=== PATIENT | male | born 1955 | race Caucasian/White ===

== ENCOUNTER 2023-03-14 09:03 | Outpatient (CLI) | payer OTHER, SELFPAY ==
--- NOTE | 2023-03-14 09:14 | USCV_ITS ---
Miguel Maguire Age: 67 Gender: M : 1955 Exam Date: 03/14/2023 09:26 Ordering Phys: Pietro Fletcher DO Technologist: LINDA ANDREW [place] [facility] [place]: screening HISTORY: Diameter (cm) AP x Transverse x Length Velocity (cm/s) Waveform Prox Aorta: 1.78 x 2.04 x 77.70 Mid Aorta: 1.86 x 1.65 x 90.90 Distal Aorta: 2.10 x 2.19 x 116.50 Right Iliac Prox: 0.91 x 0.87 x 158.00 Left Iliac Prox: 0.74 x 1.03 x 129.30 Stent Prox Landing x x Aneurysmal Sac Max x x Lt Lat Sac Dim Rt Lat Sac Dim Stent Dist Landing x x Right Iliac Stent x x Left Iliac Stent x x Right Renal Art Left Renal Art FINDINGS: Comparison: none available. Ectatic abdominal aorta with evidence of atherosclerotic plaque noted. Significant plaque with narrowing to the lumen. There is evidence of atherosclerotic plaque no significan stenosis in the right common iliac artery. There is no evidence of a right common iliac artery aneurysm. There is evidence of atherosclerotic plaque no significan stenosis in the left common iliac artery. There is no evidence of a left common iliac artery aneurysm. CONCLUSIONS No evidence of abdominal aortic or bilateral iliac aneurysm. Moderate atherosclerotic plaque. Dr. Kay Wynne DO (Electronically Signed) Final Date: 14 March 2023 10:27 S
== END 2023-03-14 09:04 | disposition home or self-care (01) ==
PROVIDERS: PCP Emergency Medicine Emergency Medical Services; Visit Provider Emergency Medicine Emergency Medical Services
DX: Z13.6 Encounter for screening for cardiovascular disorders (principal); I70.0 Atherosclerosis of aorta
CPT/HCPCS: 76706

== ENCOUNTER 2023-08-12 09:29 | Outpatient (CLI) | payer OTHER, SELFPAY ==
--- NOTE | 2023-08-12 09:54 | MR_ITS ---
WS: [id number] MRI LUMBAR SPINE NONCONTRAST HISTORY: LOW BACK PAIN COMPARISON: 01/08/2017 TECHNIQUE: Sagittal and axial multisequence imaging is submitted. Anterior partial osseous fusion at C3-4. Multilevel areas of disc bulging and disc space narrowing in the cervical and thoracic spines. Mild progression since 2017. Retrolisthesis L2 and L3 by 3 mm. Disc spaces are all narrowed and desiccated throughout the lumbar s pine. Mild progression since 2017. Conus terminates normally at L1-2 disc level. L1-L2: Mild disc bulging with moderate bilateral facet arthritis. Moderate bilateral foraminal stenos is, RIGHT greater than LEFT. L2-L3: Diffuse annular disc bulging asymmetric to the RIGHT. Additional central disc protrusion has i ncreased in size deforming the ventral thecal sac extending into the subarticular recesses. There is disc encroachment upon the thecal sac. Contact on the nerve roots. Moderate central with bilateral pelletier barticular recess and foraminal stenosis. L3-L4: Diffuse annular disc bulging with moderate osteophytic ridging, ligamentum flavum and facet ar thritis. Moderate central, bilateral subarticular recess and moderate to severe foraminal stenosis. M ost significant stenosis on the LEFT. L4-L5: Diffuse annular disc bulging and osteophytic ridging with facet and ligamentum flavum hypertro phy. Moderate central, bilateral subarticular recess and moderate to severe foraminal stenosis. L5-S1: Diffuse annular disc bulging, osteophytic ridging. Disc asymmetrically extends to the level RI GHT. Moderate to severe central, bilateral subarticular recess and foraminal stenosis. Moderate atherosclerosis aorta. No aneurysm. IMPRESSION: 1. Mild progression of stenoses and degenerative changes throughout the lumbar spine since 01/08/2017. 2. Moderate central with moderate to severe bilateral foraminal stenosis from L2-3 through L5-S1. The re is significant encroachment upon the traversing and exiting nerve roots at each level. 3. Increasing central disc protrusion at the L2-3 level since the prior study. 4. L2 and L3 retrolisthesis by 3 mm.
== END 2023-08-12 09:30 | disposition home or self-care (01) ==
LOC: RAD 09:30
PROVIDERS: PCP Emergency Medicine Emergency Medical Services; Visit Provider Emergency Medicine Emergency Medical Services
DX: M48.061 Spinal stenosis, lumbar region without neurogenic claudication (principal); M51.26 Other intervertebral disc displacement, lumbar region
CPT/HCPCS: 72148

== ENCOUNTER 2025-03-04 10:30 | Inpatient (IN) | payer OTHER, MEDICARE, SELFPAY ==
--- OUTSIDE RECORDS SUMMARY | 2023-11-25 05:30 | XMS_ITS ---
Author Organization [facility] Address [address] [place] [address] Care Team Providers Care Automatic Mounter Name Role Phone [facility] Pietro WILSON Primary Care Provider Un available Andrea Alcala Unavailable [phone] REASON FOR VISIT 3 month f/u LBP Encounters Encounter Location Date Provider Diagnosis [facility] [address] [address] 11/25/2023 Andrea Alcala Plan Of Treatment No Information Progress Notes * Miguel JORDANDOB:1955 ( 69 yo M)Acc No.[id number]:11/25/2023 Progress Notes Patient: Miguel CINTRON Provider: Natalio Alcala MD :1955 A ge:68 Y S ex:Male Date:11/25/2023 Address[id number] Pcp:Pietro Thompson DO Subjective: * Chief Complaints: * 1 . 3 month f/u LBP. * Medical History: Objective: * Vitals: Assessment: Plan: * Treatment: Forms: * Billing Information: * Visit Code: * Procedure Codes: Care Plan Details* * Electronic signature of Stanley Alcala MD on 03/04/2025 at 11:01 AM CDT Sign off status: Pending * Provider: Natalio Alcala MD Date: 11/25/2023 Generated for Davidi ng/Faleroyg/eTransmitting on: 03/04/2025 11:01 AM CDT
--- OUTSIDE RECORDS SUMMARY | 2024-03-05 04:37 | XMS_ITS ---
Author Name [facility] [place] [facility] [place] [facility] [facility] [place] Address [address] [place] [address] Care Team Providers Care Gate Operator Name Role Phone NEELIMA TORRESSybil Primary Care Provider Unavailabl e Insurance Providers: All historical and current Section Date Range: From patient's date of to the date document was created. This section includes the names of all active insurance providers for the patient. Insurance Provider Type of Coverage Plan Name Start of Policy Coverage End of Policy Coverage Group Number Member ID Insurance Provider's Telephone Number Policy Dailey's Name Patient's Relationship to Policy Dailey MEDICARE (WNR) MEDICARE (M) PART A Nov 23, 2016 PART A [id number] [phone] KAYLAN JORDAN PATIENT MEDICARE (WNR) MEDICARE (M) PART A Nov 23, 2016 PART A [id number] [phone] KAYLAN JORDAN PATIENT Selected Encounter This section includes the information on record at [place] for the Encounter. Date/Time Encounter Type Encounter Description Reason Pro vider Source Mar 05, 2024 09:37 AM Outpatient Encounter ADMIN PAT ACTIVTIES (MASNONCT) IHE Encounter Template Text not used by [place] Plan of Treatment: Future Appointments (+ 6 months) and Future Tests (+/- 45 days) The Plan of Treatment section includes future care activities for the patient from all [facility] treatment[facility]ilities. This section includes future appointments and future orders which are active, pending or scheduled. Future Appointments This section includes appointments that were scheduled to occur 6 months from the date of the Encounter, up to a maximum of 20 appointments. The data comes from all [facility]. Appointment Date/Time Appointment Type Appointme nt Facility Name Jun 08, 2024 09:30 AM [facility] [place] [facility] Jun 21, 2024 10:30 AM [facility] [place] [facility] Active, Pending, and Scheduled Orders This section includes a listing of several types of active, pending, and scheduled orders, including clinic medications orders, diagnostic test orders, procedure orders and consult orders; where the start date of the order is 45 days before the date of the Encounter or 45 days after the date of theEncounter. The data comes from all [facility]. Test Date/Time Test Type Test Details Facility Name Feb 23, 2024 12:00 AM Laboratory - Chemi stry Order CYSTATIN C EGFR PANELS (STL-PB-MA) GREEN LI/HEP BLD/PLAS PLASMA [facility] Mar 08, 2024 12:00 AM Laboratory - Chemi stry Order PROST. SPECIFIC AG.(PB-STL) GOLD/RED SST SERUM [facility] Lab Results: +/- 30 days of the encounter This section includes the Chemistry and Hematology Lab Results on record with [place] for the patient. Radiology Reports and Pathology Reports are provided separately, in subsequent sections. Lab Results This section contains the Chemistry/Hematology Results that were resulted 30 days before or 30 daysafter the date of the Encounter. Date/Time Source Result Type Result - Unit Interpretation Reference Range Specimen Type Comment Feb 18, 2024 11:11 AM [facility] HGA1C BLOOD Specimen Type: BLOOD No comment entered. Ordering Provider: FREDI CAVAZOS Report Released Date/Time: Feb 17, 2024 04:02 PM Reporting Lab: [place] [facility] [address] [place] [address] Performing Lab: [place] [facility] [address] [place] [address] HGA1C 5.8 4.0-6.0 Feb 18, 2024 11:11 AM [facility] CHOLESTEROL PANEL (PB) PLASMA Specimen Type: P LASMA No comment entered. Ordering Provider: FREDI CAVAZOS Report Released Date/Time: Feb 17, 2024 04:02 PM Reporting Lab: [place] [facility] [address] [place] [facility] Performing Lab: [place] [facility] [address] [place] [address] CHOLESTEROL 208 mg/dL H 0-200 TRIGLYCERIDE 102 mg/dL 0-150 CALCULATED LDL 157.7 mg/dL HDL(New) 29.9 mg/dL L >40 HDL % OF TOTAL CHOLESTEROL (PB) 14.4 >25 Feb 18, 2024 11:11 AM [facility] VITAMIN D, 25-HYDROXY SERUM Specimen Type: SE RUM No comment entered. Ordering Provider: FREDI CAVAZOS Report Released Date/Time: Feb 17, 2024 04:02 PM Reporting Lab: [place] [facility] [address] [place] [address] Performing Lab: [place] [facility] [address] [place] [address] VITAMIN D, 25-HYDROXY 49.6 ng/mL 30-96 Feb 18, 2024 11:11 AM [facility] URINALYSIS (STL-PB) URINE Specimen Type: URIN E No comment entered. Ordering Provider: FREDI CAVAZOS Report Released Date/Time: Feb 17, 2024 04:02 PM Reporting Lab: [place] [facility] [address] [place] [address] Performing Lab: [place] [facility] [address] [place] [address] URINE COLOR Yellow Yellow U.BILIRUBIN NEGATIVE mg/dL Negative U.PH 6.0 5.0-8.0 APPEARANCE CLEAR Clear U.NITRITE NEGATIVE mg/dL Negative URN.GLUCOSE NORMAL mg/dL Negative URN.PROTEIN NEGATIVE mg/dL Negative-20 URN.UROBILINOGEN 2.0 mg/dL H Normal URN.BLOOD NEGATIVE mg/dL Negative-Trace URN.KETONES NEGATIVE mg/dL Negative-Trac e URN.LEUK.EST. NEGATIVE Negative-Trace URN.SPECIFIC GRAVITY 1.030 H 1.005-1.029 Feb 18, 2024 11:11 AM [facility] B12 SERUM Specimen Type: SERUM No comment entered. Ordering Provider: FREDI CAVAZOS Report Released Date/Time: Feb 17, 2024 04:02 PM Reporting Lab: [place] [facility] [address] [place] [address] Performing Lab: [place] [facility] [address] [place] [address] B12 543 pg/mL 213-816 Feb 18, 2024 11:11 AM [facility] COMPREHENSIVE METABOLIC PANEL PLASMA Specimen Type: PLASMA No comment entered. Ordering Provider: FREDI CAVAZOS Report Released Date/Time: Feb 17, 2024 04:02 PM Reporting Lab: [place] [facility] [address] [place] [address] Performing Lab: [place] [facility] [address] [place] [facility] CREATININE 0.86 mg/dL 0.7-1.3 UREA NITROGEN 23 mg/dL 9-25 GLUCOSE 101 mg/dL H 72-99 SODIUM 139 meq/L 136-145 POTASSIUM 4.0 meq/L 3.5-5 CHLORIDE 103 meq/L 98-107 CARBON DIOXIDE 28 meq/L 22-31 CALCIUM 9.7 mg/dL 8.4-10.4 PROTEIN 7.2 g/dL 6-8.6 ALBUMIN 4.3 g/dL 3.4-5 TOTAL BILIRUBIN 0.3 mg/dL 0.2-1.2 ALKALINE PHOSPHATASE 76 U/L 40-150 AST/SGOT 16 U/L 5-34 ALT/SGPT 13 U/L 8-40 EGFR (CKD-EPI 2020) 95 Feb 18, 2024 11:11 AM [facility] FOLATE (PB) SERUM Specimen Typ e: SERUM No comment entered. Ordering Provider: FREDI CAVAZOS Report Released Date/Time: Feb 17, 2024 04:02 PM Reporting Lab: [place] [facility] [address] [place] [address] Performing Lab: [place] [facility] [address] [place] [facility] FOLATE (PB) >20.0 ng/mL H 7-20 Feb 18, 2024 11:11 AM [facility] CBC BLOOD Specimen Type: BLOOD No comment entered. Ordering Provider: FREDI CAVAZOS Report Released Date/Time: Feb 17, 2024 04:02 PM Reporting Lab: [place] [facility] [address] [place] [facility] Performing Lab: [place] [facility] [address] [place] [address] WBC 10.6 10*3/uL 3.6-11.2 RBC 4.77 10*6/uL 4.10-5.70 HGB 15.2 g/dL 13.1-16.8 HCT 45.3 38.2-48.4 MCV 95.0 fL 80.0-100.0 MCH 31.9 pg 27.0-34.0 MCHC 33.6 g/dL 33.0-36.0 PLT 292 10*3/uL 150-400 MPV 9.6 fL 7.5-11.2 RDW 12.7 11.8-15.1 LYMPHOCYTES, AUTO % 27.6 MONOCYTES, AUTO % 10.8 NEUTROPHILS, AUTO % 56.9 EOSINOPHILS, AUTO % 3.4 BASOPHILS, AUTO % 0.9 LYMPHOCYTES, ABSOLUTE 2.92 10*3/uL 0.77- 4.50 MONOCYTES, ABSOLUTE 1.14 10*3/uL H 0.19-0. 8 NEUTROPHILS, ABSOLUTE 6.02 10*3/uL 2.10- 8.00 EOSINOPHILS, ABSOLUTE 0.36 10*3/uL 0.00- 0.60 BASOPHILS, ABSOLUTE 0.10 10*3/uL 0.00-0. 20 IMMATURE GRANS, AUTO % 0.4 IMMATURE GRANS, AUTO ABS 0.04 10*3/uL 0. 00-0.05 Feb 18, 2024 11:11 AM [facility] TSH (MA-PB) SERUM Specimen Typ e: SERUM No comment entered. Ordering Provider: FREDI CAVAZOS Report Released Date/Time: Feb 17, 2024 04:02 PM Reporting Lab: [place] [facility] [address] [place] [facility] Performing Lab: [place] [facility] [address] [place] [address] TSH 1.900 u[IU]/mL 0.47-5 Feb 18, 2024 11:11 AM [facility] PROST. SPECIFIC AG.(PB-STL) SERUM Specimen Ty pe: SERUM No comment entered. Ordering Provider: FREDI CAVAZOS Report Released Date/Time: Feb 17, 2024 04:02 PM Reporting Lab: [place] [facility] [address] [place] [address] Performing Lab: [place] [facility] [address] [place] [address] PROST. SPECIFIC AG.(PB-STL) 4.36 ng/mL H 0 -4 Radiology Reports: +/- 30 days of the encounter Radiology Reports For cases when an order for radiology services may have been completed prior to the date of the Encounter, the report list includes the Radiology Reports that were completed up to 30 days before dateof the Encounter. For cases when an order for radiology services may have been completed after the date of the Encounter, the report list also includes the Radiology Reports that were completed up to30 days after date of the Encounter. The data comes from all [place] treatment facilities. Date/Time Radiology Report Provider Source Mar 04, 2024 01:54 PM LDCT LUNG CANCER S CREENING: MARLENE JORDAN RAY [id number] -1955 M Exm Date: MAR 04, 2024@13:54 Req Phys: FREDI CAVAZOS Pat Loc: PB-TIGRE PACT BARTHOLOMEW CLUTCH SPECIALIST (Sarahyq'g Lo Img Loc: PB-CT IMAGING Service: [place] [address] (Case [id number] COMPLETE) LDCT LUNG CANCER SCREENING (CT Detailed) CPT:37030 Reason for Study: screening Clinical History: Responsible Attending: fredi cavazos Attending Contact Number: [phone] Resident Contact Number: Smokes 1 pack a day for 50years Report Status: Verified Date Reported: MAR 04, 2024 Date Verified: MAR 04, 2024 Sweet Dough Mixer E-Sig:/ES/HANNAH YOUNG Report: EXAM: LDCT LUNG CANCER SCREENING ADDITIONAL HISTORY: N/A COMPARISON: None PROTOCOL: Screening protocol, low dose, non-contrast CT chest was performed at the local [place] facility in accordance with Lung-Rads 2021. Additional coronal and sagittal reconstructions. MIP reconstructions were reviewed. Secondary computer-aided detection post-processing used. RADIATION DOSE: CTDI(vol): 2.8 mGy DLP: 106.6 mGy*cm INDEX NODULE: No suspicious pulmonary nodule. OTHER NODULES: None. LUNG/AIRWAY FINDINGS: Calcifications seen in the lungs from old granulomatous disease. Mild scarring noted. EMPHYSEMA: Mild HEART, MEDIASTINUM AND LYMPH NODES: Calcified mediastinal and hilar lymph nodes. Ascending thoracic aortic aneurysm measuring approximately 4 cm. VISUAL CORONARY ARTERY CALCIFICATIONS: Moderate to severe UPPER ABDOMEN: Calcifications in the liver and spleen from old granulomatous disease. BONES, SOFT TISSUES, AND ADDITIONAL FINDINGS: Degenerative arthritis thoracic spine. Impression: LUNG-RADS: 1: Negative. RECOMMENDATION: Follow-up low-dose CT scan in one year if patient meets criteria LUNG-RADS MODIFIER: S: Findings unrelated to lung cancer. As described above Primary Interpreting Staff: HANNAH YOUNG, RADIOLOGIST (Sweet Dough Mixer) /HANNAH Rivera [facility] Encounter Notes: All associated encounter notes This section contains the clinical notes associated to the Encounter. Date/Time Encounter Note(s) Provider Source Mar 05, 2024 09:37 AM PRIMARY CARE PANCHITO RS: LOCAL TITLE: TEST RESULT LETTER PB STANDARD TITLE: PRIMARY CARE LETTERS DATE OF NOTE: MAR 05, 2024@09:37 ENTRY DATE: MAR 05, 2024@09:37:52 AUTHOR: CECILLE KIM EXP COSIGNER: URGENCY: STATUS: COMPLETED [facility] [address] [place], [place] [address] MAR 05, 2024 MARLENE JORDAN [id number] [place], [place] [address] Dear Marlene Jordan, Thank you for completing your Lung Cancer Screening Imaging. You are very important to us. Lung cancer is treatable, and patients do better if it is found early. The national recommendation for Lung Cancer Screening is to continue through age 80 and/or until you have been cigarette free for 15 years. I would like to update you on your recent test results: RADIOLOGY(NON-INVASIVE TEST RESULTS):Low Dose CT for Lung Cancer Screening DATE of EXAM: 03/04/2024 Findings: No suspicious pulmonary nodules. Lung-RADS category 1: Negative. MANAGEMENT RECOMMENDATION: Continue annual screening with low-dose CT in 12 months. You will be due for your next Lung Cancer Screen imaging February 2025. If you have a cold or any lung congestion when you are due for your next screen, it is best to reschedule for 3-4 weeks to allow time for potential mucous to clear. Lung cancer screening can detect lung cancer, but it does not prevent it. Rarely, a CT scan can miss a small lung cancer. Contact your primary care provider if you develop new symptoms like worsening shortness of breath, change in a cough, or coughing up blood. Should you have any questions or need assistance with smoking cessation, please contact your Primary Care provider. ALLY CURRY [place] SMOKING CESSATION: [phone] (group/individual support) and clinical pharmacy for smoking cessation medication modalities. OTHER SMOKING CESSATION RESOURCES: 0-885-XYGM-VET (1:1 coaching) and veterans.smokefree.gov FUTURE APPOINTMENTS: No future appointments CECILLE KIM [facility]
--- OUTSIDE RECORDS SUMMARY | 2025-02-03 07:31 | XMS_ITS ---
Author Name [facility] [place] Address [address] [place] [address] Care Team Providers Care Putty And Caulking Supervisor Name Role Phone TJ TORRES Primary Care Provider Unavailabl e Insurance Providers: [...] PART A Nov 23, 2016 PART A [id number] [phone] KAYLAN JORDAN PATIENT MEDICARE (WNR) MEDICARE (M) PART A Nov 23, 2016 PART A [id number] KAYLAN JORDAN PATIENT Selected Encounter This section includes the information on record at [place] for the Encounter. Date/Time Encounter Type Encounter Description Reason Provider Source Feb 03, 2025 12:31 PM Outpatient Encounter ADMIN PAT ACTIVTIES (MASNONCT) CECILLE KIM Encounter Template Text not used by [facility] Radiology Reports: +/- 30 days of the [...] the Encounter. The data comes from all [place] treatment facilities. Date/Time Radiology Report Provider Source Feb 02, 2025 01:28 PM LDCT LUNG CANCER S CREENING: MARLENE JORDAN [id number] -1955 M Exm Date: FEB 02, 2025@13:28 Req Phys: JULEE VAZQUEZ Pat Loc: PB-ADMIN LUNG SCREENING (Req'g Img Loc: PB-CT IMAGING Service: Unknown [facility] [place] [place] [id number] (Case [id number] COMPLETE) LDCT LUNG CANCER SCREENING (CT Detailed) CPT:72481 Reason for Study: LCS Annual F/U Clinical History: Responsible Attending: Julee Vazquez Attending Contact Number: [phone] 03/04/2024: LRADS 1 Smoking hx: 1 ppd x 50 yrs Report Status: Verified Date Reported: FEB 03, 2025 Date Verified: FEB 03, 2025 Yarn Wrapper E-Sig: Report: EXAM: LDCT LUNG CANCER SCREENING ADDITIONAL HISTORY: Annual Screening COMPARISON: 03/04/2024 PROTOCOL: Screening protocol, low dose, non-contrast CT chest was performed at the local [place] facility in accordance with Lung-Rads 2022. Additional coronal and sagittal reconstructions. MIP reconstructions were reviewed. 2470 images were received by the [place] National Teleradiology Program (NTP) for interpretation. RADIATION DOSE: CTDI(vol): 2.8 mGy DLP: 109.8 mGy*cm INDEX NODULE: No suspicious pulmonary nodule. OTHER NODULES: A few calcified granulomas redemonstrated. No other nodule. LUNG/AIRWAY FINDINGS: Minimal subsegmental linear scarring in the right upper lobe and in the right middle lobe. No consolidation or pulmonary fibrosis. Central airways are clear. EMPHYSEMA: Mild HEART, MEDIASTINUM AND LYMPH NODES: No thoracic lymphadenopathy by size criteria. Mediastinal and hilar calcified lymph nodes consistent with healed granulomatous disease. Heart size normal. No pericardial effusion. Thoracic aorta and main pulmonary artery normal in caliber. VISUAL CORONARY ARTERY CALCIFICATIONS: Moderate UPPER ABDOMEN: Hepatic and splenic calcified granulomas as before. Visualized upper abdomen otherwise unremarkable. BONES, SOFT TISSUES, AND ADDITIONAL FINDINGS: No acute or suspicious osseous abnormality. Impression: LUNG-RADS: 1: Negative. RECOMMENDATION: [address] follow-up, if patient meets screening criteria. LUNG-RADS MODIFIER: N/A. READING PHYSICIAN: Shaheen Macedo MD -[id number] 02/03/2025 8:31 PDT [facility] National Teleradiology Program [phone] (For Medical Practitioner Use Only) Attention Patients / Veterans: If you have questions or concerns about these test results, please contact your ordering provider or primary care team. Primary Interpreting Staff: RADIOLOGY,OUTSIDE SERVICE, Staff Physician / RADIOLOGY,OUTSIDE SERVICE [facility] Encounter Notes: All associated encounter notes This section contains the clinical notes associated to the Encounter. Date/Time Encounter Note(s) Provider Source Feb 03, 2025 12:31 PM PRIMARY CARE DIAGN OSTIC STUDY NOTE: LOCAL TITLE: LDCT FOLLOW-UP NOTE PB STANDARD TITLE: PRIMARY CARE DIAGNOSTIC STUDY NOTE DATE OF NOTE: FEB 03, 2025@12:31 ENTRY DATE: FEB 03, 2025@12:31:53 AUTHOR: CECILLE KIM EXP COSIGNER: URGENCY: STATUS: COMPLETED NO LUNG NODULES or TRACKING OF NODULE NOT INDICATED per guidelines (e.g., clearly benign/some small nodules). Date of image: Date: February 02, 2025 LDCT Scan Results: Most recent LDCT Scan negative for lung nodules Lung RADS Score: 1 Incidental Findings: No incidental findings were noted. Plan: Continue routine annual lung cancer screening. Patient Notification of results: Results letter sent to patient. Smoking history: 1 ppd x 50 years, current smoker. /karina/ CHIRAG Cheng, RN LCS Program Signed: 02/03/2025 12:35 CECILLE KIM [facility]
--- OUTSIDE RECORDS SUMMARY | 2025-02-03 07:34 | XMS_ITS | Encounter Summary ---
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 Date/Time Encounter Type Encounter Description Reason Pro vider Source Feb 03, 2025 12:34 PM Outpatient Encounter ADMIN PAT ACTIVTIES (MASNONCT) IHE Encounter Template Text not used by VA [...] the Encounter. The data comes from all [place] treatment facilities. Date/Time Radiology Report Provider Source Feb 02, 2025 01:28 PM LDCT LUNG CANCER S CREENING: MARLENE JORDAN [id number] -1955 M Exm Date: FEB 02, 2025@13:28 Req Phys: JULEE VAZQUEZ Pat Loc: PB-ADMIN LUNG SCREENING (Req'g Img Loc: PB-CT IMAGING Service: Unknown MIKAYLA HAY [facility] [place] [id number] (Case [id number] COMPLETE) LDCT LUNG CANCER SCREENING (CT Detailed) CPT:98655 Reason for Study: LCS Annual F/U Clinical History: Responsible Attending: Julee Vazquez Attending Contact Number: [id number] 03/04/2024: LRADS 1 Smoking hx: 1 ppd x 50 yrs Report Status: Verified Date Reported: FEB 03, 2025 Date Verified: FEB 03, 2025 Health Plan Specialist E-Sig: Report: EXAM: LDCT LUNG CANCER SCREENING ADDITIONAL HISTORY: Annual Screening COMPARISON: 03/04/2024 PROTOCOL: Screening protocol, low dose, non-contrast CT chest was performed at the local [place] facility in accordance with Lung-Rads 2022. Additional coronal and sagittal reconstructions. MIP reconstructions were reviewed. 2470 images were received by the [place] National Teleradiology Program (NTP) for interpretation. RADIATION [...] MODIFIER: N/A. READING PHYSICIAN: Shaheen Macedo MD -[id number] 02/03/2025 8:31 PDT [facility] National Teleradiology Program [phone] (For Medical Practitioner Use Only) Attention Patients / Veterans: If you have questions or concerns about these test results, please contact your ordering provider or primary care team. Primary Interpreting Staff: RADIOLOGY,OUTSIDE SERVICE, Staff Physician / RADIOLOGY,OUTSIDE SERVICE [facility] Encounter Notes: All associated encounter notes This section contains the clinical notes associated to the Encounter. Date/Time Encounter Note(s) Provider Source Feb 03, 2025 12:34 PM PRIMARY CARE LETTE RS: LOCAL TITLE: TEST RESULT LETTER PB STANDARD TITLE: PRIMARY CARE LETTERS DATE OF NOTE: FEB 03, 2025@12:34 ENTRY DATE: FEB 03, 2025@12:34:31 AUTHOR: CECILLE KIM EXP COSIGNER: URGENCY: STATUS: COMPLETED [facility] [address], [place] [address] FEB 03, 2025 MARLENE JORDAN [address] [place], [place] [address] Dear Marlene Jordan, Thank you for completing your Lung Cancer Screening Imaging. You are very important to us. Lung cancer is treatable, and patients do better if it is found early. The national recommendation for Lung Cancer Screening is to continue through age 80 and/or until you have been cigarette free for 15 years. RADIOLOGY(NON-INVASIVE TEST RESULTS: Low Dose CT for Lung Cancer Screening DATE of EXAM: 02/02/2025 Findings: No suspicious pulmonary nodules. Lung-RADS category 1: Negative. MANAGEMENT RECOMMENDATION: Continue annual screening with low-dose CT in 12 months. You will be due for your next Lung Cancer Screen imaging January 2026. If you have a cold or any lung congestion when you are due for your next screen, it is best to reschedule for 3-4 weeks to allow time for potential mucous to clear. Lung cancer screening can detect lung cancer but it does not prevent it. Rarely, a CT scan can miss a small lung cancer. Contact your primary care provider if you develop new symptoms, such as worsening shortness of breath, change in a cough, or coughing up blood. Should you have any questions or need assistance with smoking cessation, please contact your Primary Care provider. ALLY CURRY [place] SMOKING CESSATION: [phone] (group/individual support) and clinical pharmacy for smoking cessation medication modalities. OTHER SMOKING CESSATION RESOURCES: 5-843-LXEG-VET (1:1 coaching) and veterans.smokefree.gov We understand that quitting cigarette smoking is difficult, but it is the best way to improve your health. FUTURE APPOINTMENTS: No future appointments [facility]ECILLE KIM [facility]
[2025-03-04] VITALS (22 sets, daily range): BP systolic 96–161; BP diastolic 60–77; PULSE 78–105; RESP 10–24; TEMP 36.2–37.2; O2SAT 87–99; BMI 24.9; BMI 23.8
--- OUTSIDE RECORDS SUMMARY | 2025-03-04 03:28 | XMS_ITS | Encounter Summary ---
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 Date/Time Encounter Type Encounter Description Reason Pro vider Source Mar 04, 2025 08:28 AM Outpatient Encounter TELEPHONE TRIAGE IHE Encounter Template Text not used by [...] the Encounter. The data comes from all [place] treatment facilities. Date/Time Radiology Report Provider Source Feb 02, 2025 01:28 PM LDCT LUNG CANCER S CREENING: MARLENE JORDAN [id number] -1955 M Exm Date: FEB 02, 2025@13:28 Req Phys: JULEE VAZQUEZ Pat Loc: PB-ADMIN LUNG SCREENING (Req'g Img Loc: PB-CT IMAGING Service: Unknown MIKAYLA HAY [facility] [place] [id number] (Case [id number] COMPLETE) LDCT LUNG CANCER SCREENING (CT Detailed) CPT:03909 Reason for Study: LCS Annual F/U Clinical History: Responsible Attending: Julee Vazquez Attending Contact Number: [id number] 03/04/2024: LRADS 1 Smoking hx: 1 ppd x 50 yrs Report Status: Verified Date Reported: FEB 03, 2025 Date Verified: FEB 03, 2025 Hand Screen Printer E-Sig: Report: EXAM: LDCT LUNG CANCER SCREENING ADDITIONAL HISTORY: Annual Screening COMPARISON: 03/04/2024 PROTOCOL: Screening protocol, low dose, non-contrast CT chest was performed at the local [place] facility in accordance with Lung-Rads 2021. Additional coronal and sagittal reconstructions. MIP reconstructions were reviewed. 2470 images were received by the [place] National Teleradiology Program (NTP) for interpretation. RADIATION [...] MODIFIER: N/A. READING PHYSICIAN: Shaheen Macedo MD -[id number] 02/03/2025 8:31 PDT [facility] National Teleradiology Program [phone] (For Medical Practitioner Use Only) Attention Patients / Veterans: If you have questions or concerns about these test results, please contact your ordering provider or primary care team. Primary Interpreting Staff: RADIOLOGY,OUTSIDE SERVICE, Staff Physician / RADIOLOGY,OUTSIDE SERVICE ALLY CURRY [facility] Encounter Notes: All associated encounter notes This section contains the clinical notes associated to the Encounter. Date/Time Encounter Note(s) Provider Source Mar 04, 2025 08:28 AM RN PROGRESS NOTE: LOCAL TITLE: CCC: CLINICAL TRIAGE STANDARD TITLE: RN PROGRESS NOTE DATE OF NOTE: MAR 04, 2025@08:28:18 ENTRY DATE: MAR 04, 2025@08:28:18 AUTHOR: MILA MENDIETA COSIGNER: URGENCY: STATUS: COMPLETED Caller Verification Caller/Recipient Relation to Patient: Other If Other Describe Relation to Patient: Daughter Caller Name: Alicia Emergency Contact: MALINDA JORDAN Triage Summary Conducted triage/discussed symptoms Pain Score: 5 (Moderate to Severe Pain) Utilized the Triage Tool: Yes Chief Complaint: Abdominal Pain - Male Nurse's Recommendation / WHEN: Now Nurse's Recommendation / WHERE: ED [facility] Patient Disposition Patient/Caregiver agrees to plan of care: Yes Patient WHERE: ED Other Patient WHEN: Now Nursing Plan and Disposition Referred patient to higher level of care Instructed to go to Emergency Room (ER) Advised of Financial Disclaimer: Patient advised that recommendation for care provided during the call does not constitute an approval or authorization for payment by the [place] or its staff. Patient advised to report a community ED visit to the national Office of Community Care at within 72 hours. Other course(s) of action Generated msg to PACT/Provider Nurse Summary Nurse Summary: Holcombe's daughter Alicia called reporting having RS abdominal pain since Friday she thinks its his appendix. reports moderate to severe abdominal pain to lower/middle RIGHT side and across lower abdomen, Nausea, fever, chills, abdominal swelling and black stools. Pain 5/10. Triage completed, recommends ER NOW. Financial disclaimer read. [facility] instructions and number provided. going to local ER for evaluation/treatment. Clinical Contact Center Codes Clinic/Location: V15 PB PHONE CCC RN Decision Support System Output: Triage Complete Triage Date: 03/04/2025, 08:17 AM Triage Note: Decision Support Tool Used: ClearTriage Protocol Used: Abdominal Pain - Male Protocol-Based Disposition: Go to ED Now Positive Triage Question: * [1] SEVERE pain AND [2] age > 60 years Care Advice Discussed: * Another Adult Should Drive * Nothing by Mouth * Bring Medicines IMPORTANT: This note was created by [facility] Clinical Contact Center staff. Please do not alert the staff member by adding them as a signer for future communications. Alerts are not monitored by this user. /karina/ MILA MENDIETA RN Signed: 03/04/2025 08:28 Receipt Acknowledged By: * AWAITING SIGNATURE * TJ TORRES III * AWAITING SIGNATURE * KRIS PANDA LISA A [facility] [place] [facility]
--- OUTSIDE RECORDS SUMMARY | 2025-03-04 06:00 | XMS_ITS | Continuity of Care Document ---
Author Name [facility] Organization [facility] Care Team Providers Care Advance Seal Delivery System Maintainer Name Role Phone [facility] Unavailable Unavailable Problems Combined list of problems from Department of Defense and Veterans Affairs facilities. It does not include entries that were removed or entered in error. Problem Status Onset Date Problem Type Date of Resolution Comments Source Benign prostatic hypertrophy (SNOMED CT 820079828) Active Condition [place] [facility] Chronic obstructive pulmonary disease (SNOMED CT 01352267) Active Condition [place] [facility] Closed subluxation cervical spine Active Condition [place] [facility] Elevated PSA Active Condition Feb 05, 2022 Entered By: AILEEN GARDNER Comment: 4.2 in January of 2022. 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) Active Condition [place] [facility] Neuropathy Active Condition [place] [facility] Osteoarthritis Active Condition [place] [facility] Spinal stenosis of lumbar region Active Condition [place] [facility] Thoracic aortic aneurysm without rupture Active Condition [facility] Tobacco dependence, continuous (SNOMED CT 127016145) Active Condition [place] [facility] Urinary Tract Infection Active Condition [place] [facility] Alcohol Abuse Inactive Condition 08/12/2023 [place] [facility] Noncompliance with medication regimen (SNOMED CT 318265551) Inactive Condition 08/12/2023 [place] [facility] Other Malaise and Fatigue (ICD-9-CM 780.79) Inactive Condition 08/12/2023 [place] [facility] Diagnosis: ICD-10-CM I10 Essential (primary) hypertension Active Diagnosis [facility] Medications Combined list of outpatient medications from Department of Defense and Veterans Affairs facilities.Medications provided include 1) outpatient medications from the last 15 months, and 2) patient-reported medications. Medication Details Route Status Patient Instructions Prescription Expires Prescription Number Last Dispense Date Ordering Provider Order Date Order Qty Source ALBUTEROL SO4 90MCG/ACTUA T (CFC-F) INHL,ORAL,8 .5GM INHALE 2 PUFFS ORAL INHALATI ON FOUR TIMES A DAY NEEDED FOR COPD SHAKE WELL. RINSE MOUTHPIE CE FREQUENT LY TO PREVENT CLOGGING . RESPIR ATORY (INHAL ATION) 02/18/2025 [id number] 5 JAY HILARIO ISTEL G 2023 3 [facility] CHOLECALCIF STEVEN 25MCG (1,000UNIT) TAB TAKE ONE TABLET BY MOUTH ONCE A DAY FOR VITAMIN D DEFICIEN CY. ORAL 02/18/2025 [id number] 5 JAY HILARIO ISTEL G 2023 100 [facility] FAMOTIDINE 20MG TAB TAKE ONE TABLET BY MOUTH TWICE A DAY TO LOWER STOMACH ACID ORAL ACTIVE 01/11/2026 [id number] 5 JAY HILARIO ISTEL G 2024 180 [facility] FAMOTIDINE 20MG TAB TAKE ONE TABLET BY MOUTH TWICE A DAY TO LOWER STOMACH ACID ORAL DISCONT INUED 02/18/2025 [id number] 5 JAY HILARIO ISTEL G 2023 180 [facility] FAMOTIDINE 20MG TAB TAKE ONE TABLET BY MOUTH TWICE A DAY TO LOWER STOMACH ACID ORAL DISCONT INUED 02/13/2024 [id number] 4 ANIL GARDNER 2022 60 [facility] FLUTICASONE 100MCG/SALM ETEROL 50MCG INHL,ORAL,D ISKUS,60 INHALE 1 INHALATI ON ORAL INHALATI ON TWICE A DAY FOR COPD (OPEN DISKUS; CLICK ONLY ONCE; MAY INHALE TWICE TO COMPLETE DOSE; CLOSE WHEN FINISHED ) RINSE MOUTH AND SPIT AFTER EACH USE. RESPIR ATORY (INHAL ATION) 02/18/2025 [id number] 5 JAY HILARIO ISTEL G 2023 3 [facility] FOLIC ACID 1MG TAB TAKE ONE TABLET BY MOUTH ONCE A DAY FOR FOLIC ACID SUPPLEME NTATION ORAL 02/18/2025 [id number] 5 YANELISJAY ISTEL G 2023 100 [facility] GABAPENTIN 300MG CAP TAKE ONE CAPSULE BY MOUTH THREE TIMES A DAY FOR NERVE PAIN ONE CAPSULE EVERY MORNING AND 2 AT BEDTIME ORAL ACTIVE 11/06/2025 [id number] 5 JAY HILARIO ISTEL G 2024 270 [place] [facility] HYDROCHLORO THIAZIDE 25MG TAB TAKE ONE-HALF TABLET BY MOUTH ONCE A DAY FOR HIGH BLOOD PRESSURE ORAL ACTIVE 01/11/2026 [id number] 5 JAY HILARIO ISTEL G 2024 45 [facility] HYDROCHLORO THIAZIDE 25MG TAB TAKE ONE-HALF TABLET BY MOUTH ONCE A DAY FOR HIGH BLOOD PRESSURE ORAL DISCONT INUED 02/07/2025 [id number] 5 JAY HILARIO ISTEL G 2023 45 [place] [facility] LISINOPRIL 20MG TAB TAKE ONE-HALF TABLET BY MOUTH ONCE A DAY FOR HIGH BLOOD PRESSURE ORAL ACTIVE 01/11/2026 [id number] 5 JAY HILARIO ISTEL G 2024 45 [facility] LISINOPRIL 20MG TAB TAKE ONE-HALF TABLET BY MOUTH ONCE A DAY FOR HIGH BLOOD PRESSURE ORAL DISCONT INUED 02/07/2025 [id number] 5 JAY HILARIO ISTEL G 2023 45 [place] [facility] METHOCARBAM OL 750MG TAB TAKE 1 TABLET BY MOUTH THREE TIMES A DAY NEEDED FOR MUSCLE RELAXANT ORAL ACTIVE 01/11/2026 [id number] 5 JAY HILARIO ISTEL G 2024 270 [facility] METHOCARBAM OL 750MG TAB TAKE 1 TABLET BY MOUTH THREE TIMES A DAY NEEDED FOR MUSCLE RELAXANT ORAL DISCONT INUED 02/18/2025 [id number] 5 JAY HILARIO ISTEL G 2023 270 [facility] METOPROLOL TARTRATE 100MG TAB TAKE ONE-HALF TABLET BY MOUTH TWICE A DAY FOR HEART/BL OOD PRESSURE . TAKE WITH OR IMMEDIAT YULIET FOLLOWIN G FOOD. THIS TABLET IS TO BE CUT IN HALF FOR YOUR DOSE ORAL DISCONT INUED 02/18/2025 [id number] 5 JAY HILARIO ISTEL G 2023 90 [facility] METOPROLOL TARTRATE 100MG TAB TAKE ONE-HALF TABLET BY MOUTH TWICE A DAY FOR HEART/BL OOD PRESSURE . TAKE WITH OR IMMEDIAT YULIET FOLLOWIN G FOOD. THIS TABLET IS TO BE CUT IN HALF FOR YOUR DOSE ORAL 02/18/2025 [id number] 5 JAY HILARIO ISTEL G 2024 90 [facility] NAPROXEN 375MG TAB TAKE ONE TABLET BY MOUTH TWICE A DAY FOR PAIN AND/OR INFLAMMA TION. TAKE WITH FOOD. ORAL ACTIVE 04/14/2025 [id number] 5 NITESH SILVA 2023 180 [facility] TAMSULOSIN HCL 0.4MG CAP TAKE ONE CAPSULE BY MOUTH EVERY EVENING APPROXIM ATELY 30 MINUTES AFTER THE SAME MEAL EACH DAY (FOR PROSTATE ) ORAL ACTIVE 01/11/2026 [id number] 5 HILARIO,KR ISTEL G 2024 90 [facility] TAMSULOSIN HCL 0.4MG CAP TAKE ONE CAPSULE BY MOUTH EVERY EVENING APPROXIM ATELY 30 MINUTES AFTER THE SAME MEAL EACH DAY (FOR PROSTATE ) ORAL DISCONT INUED 02/18/2025 [id number] 5 HILARIO,KR ISTEL G 2023 90 [facility] Immunizations Combined list of available immunizations from the Department of Defense and Veterans Affairs facilities. Immunization Series Date Given Administered By Site Reaction Lot Number CVX Code Drug Leach Cell Operator Status Comments Source TDAP 2007 115 complet ed [facility] Results Combined list of recent chemistry, hematology and other laboratory results from Department of Defense and Veterans Affairs, ranging from 15 months to all on record, depending upon the facility. Order Name Results Value Reference Range Date Interpretation Specimen Comments Source HGA1C HEMOGLOBIN A1C/HEMOGLO BIN.TOTAL IN BLOOD 5.8 4.0 - 6.0 02/17 Specimen Type: BLOOD No comment entered. Ordering Provider: JAY HILARIO Report Released Date/Time : Feb 17, 2024 04:02 PM Reporting Lab: [place] [facility] [address] [place] [address] Performin g Lab: [place] [facility] [address] [place] [address] 8 [facility] CHOLESTERO L PANEL (PB) CHOLESTEROL [MASS/VOLUM E] IN SERUM OR PLASMA 208 mg/dL 0 - 200 02/17 H Specimen Type: PLASMA No comment entered. Ordering Provider: JAY HILARIO Report Released Date/Time : Feb 17, 2024 04:02 PM Reporting Lab: [place] [facility] [address] [place] [address] Performin g Lab: [place] [facility] [address] [place] [address] 8 [facility] CHOLESTERO L PANEL (PB) TRIGLYCERID E [MASS/VOLUM E] IN SERUM OR PLASMA 102 mg/dL 0 - 150 02/17 Specimen Type: PLASMA No comment entered. Ordering Provider: JAY HILARIO Report Released Date/Time : Feb 17, 2024 04:02 PM Reporting Lab: [place] [facility] [address] [place] [address] Performin g Lab: [place] [facility] [address] [place] [address] 8 [facility] CHOLESTERO L PANEL (PB) CHOLESTEROL IN LDL [MASS/VOLUM E] IN SERUM OR PLASMA BY CALCULATION 157.7 mg/dL 02/17 Specimen Type: PLASMA No comment entered. Ordering Provider: JAY HILARIO Report Released Date/Time : Feb 17, 2024 04:02 PM Reporting Lab: [place] [facility] [address] [place] [address] Performin g Lab: [place] [facility] [address] [place] [address] 8 [facility] CHOLESTERO L PANEL (PB) CHOLESTEROL IN HDL [MASS/VOLUM E] IN SERUM OR PLASMA 29.9 mg/dL 40 02/17 L Specimen Type: PLASMA No comment entered. Ordering Provider: JAY HILARIO Report Released Date/Time : Feb 17, 2024 04:02 PM Reporting Lab: [place] [facility] [address] [place] [address] Performin g Lab: [place] [facility] [address] [place] [address] 8 [facility] CHOLESTERO L PANEL (PB) CHOLESTEROL IN HDL/CHOLEST STEVEN.TOTAL [MASS RATIO] IN SERUM OR PLASMA 14.4 25 02/17 Specimen Type: PLASMA No comment entered. Ordering Provider: JAY HILARIO Report Released Date/Time : Feb 17, 2024 04:02 PM Reporting Lab: [place] [facility] [address] [place] [address] Performin g Lab: [place] [facility] [address] [place] [address] 8 [facility] VITAMIN D, 25-HYDROXY 25-HYDROXYV ITAMIN D3 [MASS/VOLUM E] IN SERUM OR PLASMA 49.6 ng/mL 30 - 96 02/17 Specimen Type: SERUM No comment entered. Ordering Provider: JAY HILARIO Report Released Date/Time : Feb 17, 2024 04:02 PM Reporting Lab: [place] [facility] [address] [place] [address] Performin g Lab: [place] [facility] [address] [place] [address] 8 [facility] URINALYSIS (STL-PB) COLOR OF URINE Yellow 02/17 Specimen Type: URINE No comment entered. Ordering Provider: JAY HILARIO Report Released Date/Time : Feb 17, 2024 04:02 PM Reporting Lab: [place] [facility] [address] [place] [address] Performin g Lab: [place] [facility] [address] [place] [address] 8 [facility] URINALYSIS (STL-PB) BILIRUBIN.T OTAL [PRESENCE] IN URINE BY TEST STRIP NEGATIVEm g/dL 06/26 /2024 Specimen Type: URINE No comment entered. Ordering Provider: JAY HILARIO Report Released Date/Time : Feb 17, 2024 04:02 PM Reporting Lab: [place] [facility] [address] [place] [address] 8 Performin g Lab: [place] [facility] [address] [place] [address] 8 [facility] URINALYSIS (STL-PB) PH OF URINE BY TEST STRIP 6.0 5.0 - 8.0 02/17 Specimen Type: URINE No comment entered. Ordering Provider: JAY HILARIO Report Released Date/Time : Feb 17, 2024 04:02 PM Reporting Lab: [place] [facility] [address] [place] [address] 8 Performin g Lab: [place] [facility] [address] [place] [address] 8 [facility] URINALYSIS (STL-PB) APPEARANCE OF URINE CLEAR 02/17 Specimen Type: URINE No comment entered. Ordering Provider: JAY HILARIO Report Released Date/Time : Feb 17, 2024 04:02 PM Reporting Lab: [place] [facility] [address] [place] [address] 8 Performin g Lab: [place] [facility] [address] [place] [address] 8 [facility] URINALYSIS (STL-PB) NITRITE [PRESENCE] IN URINE BY TEST STRIP NEGATIVEm g/dL 02/17 Specimen Type: URINE No comment entered. Ordering Provider: JAY HILARIO Report Released Date/Time : Feb 17, 2024 04:02 PM Reporting Lab: [place] [facility] [address] [place] [address] 8 Performin g Lab: [place] [facility] [address] [place] [address] 8 [facility] URINALYSIS (STL-PB) GLUCOSE [MASS/VOLUM E] IN URINE BY TEST STRIP NORMALmg/ dL 02/17 Specimen Type: URINE No comment entered. Ordering Provider: JAY HILARIO Report Released Date/Time : Feb 17, 2024 04:02 PM Reporting Lab: [place] [facility] [address] [place] [address] 8 Performin g Lab: [place] [facility] [address] [place] [address] 8 [facility] URINALYSIS (STL-PB) PROTEIN [MASS/VOLUM E] IN URINE BY TEST STRIP NEGATIVEm g/dL - 20 02/17 Specimen Type: URINE No comment entered. Ordering Provider: JAY HILARIO Report Released Date/Time : Feb 17, 2024 04:02 PM Reporting Lab: [place] [facility] [address] [place] [address] 8 Performin g Lab: [place] [facility] [address] [place] [address] 8 [facility] URINALYSIS (STL-PB) URN.UROBILI NOGEN 2.0 mg/dL 02/17 H Specimen Type: URINE No comment entered. Ordering Provider: JAY HILARIO Report Released Date/Time : Feb 17, 2024 04:02 PM Reporting Lab: [place] [facility] [address] [place] [address] 8 Performin g Lab: [place] [facility] [address] [place] [address] 8 [facility] URINALYSIS (STL-PB) HEMOGLOBIN [MASS/VOLUM E] IN URINE BY TEST STRIP NEGATIVEm g/dL 02/17 Specimen Type: URINE No comment entered. Ordering Provider: JAY HLIARIO Report Released Date/Time : Feb 17, 2024 04:02 PM Reporting Lab: [place] [facility] [address] [place] [address] Performin g Lab: [place] [facility] [address] [place] [address] 8 [facility] URINALYSIS (STL-PB) KETONES [MASS/VOLUM E] IN URINE BY TEST STRIP NEGATIVEm g/dL 02/17 Specimen Type: URINE No comment entered. Ordering Provider: JAY HILARIO Report Released Date/Time : Feb 17, 2024 04:02 PM Reporting Lab: [place] [facility] [address] [place] [address] 8 Performin g Lab: [place] [facility] [address] [place] [address] 8 [facility] URINALYSIS (STL-PB) URN.LEUK.ES T. NEGATIVE 02/17 Specimen Type: URINE No comment entered. Ordering Provider: JAY HILARIO Report Released Date/Time : Feb 17, 2024 04:02 PM Reporting Lab: [place] [facility] [address] [place] [address] Performin g Lab: [place] [facility] [address] [place] [address] 8 [facility] URINALYSIS (STL-PB) SPECIFIC GRAVITY OF URINE 1.030 1.005 - 1.029 02/17 H Specimen Type: URINE No comment entered. Ordering Provider: JAY HILARIO Report Released Date/Time : Feb 17, 2024 04:02 PM Reporting Lab: [place] [facility] [address] [place] [address] Performin g Lab: [place] [facility] [address] [place] [address] 8 [facility] B12 COBALAMIN (VITAMIN B12) [MASS/VOLUM E] IN SERUM OR PLASMA 543 pg/mL 213 - 816 02/17 Specimen Type: SERUM No comment entered. Ordering Provider: JAY HILARIO Report Released Date/Time : Feb 17, 2024 04:02 PM Reporting Lab: [place] [facility] [address] [place] [address] Performin g Lab: [place] [facility] [address] [place] [address] 8 [facility] COMPREHENS GURDEEP METABOLIC PANEL CREATININE [MASS/VOLUM E] IN SERUM OR PLASMA 0.86 mg/dL 0.7 - 1.3 02/17 Specimen Type: PLASMA No comment entered. Ordering Provider: JAY HILARIO Report Released Date/Time : Feb 17, 2024 04:02 PM Reporting Lab: [place] [facility] [address] [place] [address] Performin g Lab: [place] [facility] [address] [place] [address] 8 [facility] COMPREHENS GURDEEP METABOLIC PANEL UREA NITROGEN [MASS/VOLUM E] IN SERUM OR PLASMA 23 mg/dL 9 - 25 02/17 Specimen Type: PLASMA No comment entered. Ordering Provider: JAY HILARIO Report Released Date/Time : Feb 17, 2024 04:02 PM Reporting Lab: [place] [facility] [address] [place] [address] Performin g Lab: [place] [facility] [address] [place] [address] 8 [facility] COMPREHENS GURDEEP METABOLIC PANEL GLUCOSE [MASS/VOLUM E] IN SERUM OR PLASMA 101 mg/dL 72 - 99 02/17 H Specimen Type: PLASMA No comment entered. Ordering Provider: JAY HILARIO Report Released Date/Time : Feb 17, 2024 04:02 PM Reporting Lab: [place] [facility] [address] [place] [address] Performin g Lab: [place] [facility] [address] [place] [address] 8 [facility] COMPREHENS GURDEEP METABOLIC PANEL SODIUM [MOLES/VOLU ME] IN SERUM OR PLASMA 139 meq/L 136 - 145 02/17 Specimen Type: PLASMA No comment entered. Ordering Provider: JAY HILARIO Report Released Date/Time : Feb 17, 2024 04:02 PM Reporting Lab: [place] [facility] [address] [place] [address] Performin g Lab: [place] [facility] [address] [place] [address] 8 [facility] COMPREHENS GURDEEP METABOLIC PANEL POTASSIUM [MOLES/VOLU ME] IN SERUM OR PLASMA 4.0 meq/L 3.5 - 5 02/17 Specimen Type: PLASMA No comment entered. Ordering Provider: JAY HILARIO Report Released Date/Time : Feb 17, 2024 04:02 PM Reporting Lab: [place] [facility] [address] [place] [address] Performin g Lab: [place] [facility] [address] [place] [address] 8 [facility] COMPREHENS GURDEEP METABOLIC PANEL CHLORIDE [MOLES/VOLU ME] IN SERUM OR PLASMA 103 meq/L 98 - 107 02/17 Specimen Type: PLASMA No comment entered. Ordering Provider: JAY HILARIO Report Released Date/Time : Feb 17, 2024 04:02 PM Reporting Lab: [place] [facility] [address] [place] [address] Performin g Lab: [place] [facility] [address] [place] [address] 8 [facility] COMPREHENS GURDEEP METABOLIC PANEL CARBON DIOXIDE, TOTAL [MOLES/VOLU ME] IN SERUM OR PLASMA 28 meq/L 22 - 31 02/17 Specimen Type: PLASMA No comment entered. Ordering Provider: JAY HILARIO Report Released Date/Time : Feb 17, 2024 04:02 PM Reporting Lab: [place] [facility] [address] [place] [address] Performin g Lab: [place] [facility] [address] [place] [address] 8 [facility] COMPREHENS GURDEEP METABOLIC PANEL CALCIUM [MASS/VOLUM E] IN SERUM OR PLASMA 9.7 mg/dL 8.4 - 10.4 02/17 Specimen Type: PLASMA No comment entered. Ordering Provider: JAY HILARIO Report Released Date/Time : Feb 17, 2024 04:02 PM Reporting Lab: [place] [facility] [address] [place] [address] 8 Performin g Lab: [place] [facility] [address] [place] [address] 8 [facility] COMPREHENS GURDEEP METABOLIC PANEL PROTEIN [MASS/VOLUM E] IN SERUM OR PLASMA 7.2 g/dL 6 - 8.6 02/17 Specimen Type: PLASMA No comment entered. Ordering Provider: JAY HILARIO Report Released Date/Time : Feb 17, 2024 04:02 PM Reporting Lab: [place] [facility] [address] [place] [address] Performin g Lab: [place] [facility] [address] [place] [address] 8 [facility] COMPREHENS GURDEEP METABOLIC PANEL ALBUMIN [MASS/VOLUM E] IN SERUM OR PLASMA 4.3 g/dL 3.4 - 5 02/17 Specimen Type: PLASMA No comment entered. Ordering Provider: JAY HILARIO Report Released Date/Time : Feb 17, 2024 04:02 PM Reporting Lab: [place] [facility] [address] [place] [address] Performin g Lab: [place] [facility] [address] [place] [address] 8 [facility] COMPREHENS GURDEEP METABOLIC PANEL BILIRUBIN.T OTAL [MASS/VOLUM E] IN SERUM OR PLASMA 0.3 mg/dL 0.2 - 1.2 02/17 Specimen Type: PLASMA No comment entered. Ordering Provider: JAY HILARIO Report Released Date/Time : Feb 17, 2024 04:02 PM Reporting Lab: [place] [facility] [address] [place] [address] Performin g Lab: [place] [facility] [address] [place] [address] 8 [facility] COMPREHENS GURDEEP METABOLIC PANEL ALKALINE PHOSPHATASE [ENZYMATIC ACTIVITY/VO LUME] IN SERUM OR PLASMA 76 U/L 40 - 150 02/17 Specimen Type: PLASMA No comment entered. Ordering Provider: JAY HILARIO Report Released Date/Time : Feb 17, 2024 04:02 PM Reporting Lab: [place] [facility] [address] [place] [address] Performin g Lab: [place] [facility] [address] [place] [address] 8 [facility] COMPREHENS GURDEEP METABOLIC PANEL ASPARTATE AMINOTRANSF ERASE [ENZYMATIC ACTIVITY/VO LUME] IN SERUM OR PLASMA 16 U/L 5 - 34 02/17 Specimen Type: PLASMA No comment entered. Ordering Provider: JAY HILARIO Report Released Date/Time : Feb 17, 2024 04:02 PM Reporting Lab: [place] [facility] [address] [place] [address] 8 Performin g Lab: [place] [facility] [address] [place] [address] [facility] COMPREHENS GURDEEP METABOLIC PANEL ALANINE AMINOTRANSF ERASE [ENZYMATIC ACTIVITY/VO LUME] IN SERUM OR PLASMA 13 U/L 8 - 40 02/17 Specimen Type: PLASMA No comment entered. Ordering Provider: JAY HILARIO Report Released Date/Time : Feb 17, 2024 04:02 PM Reporting Lab: [place] [facility] [address] [place] [address] Performin g Lab: [place] [facility] [address] [place] [address] [facility] COMPREHENS GURDEEP METABOLIC PANEL GLOMERULAR FILTRATION RATE/1.73 SQ M.PREDICTED [VOLUME RATE/AREA] IN SERUM, PLASMA OR BLOOD BY CREATININE- BASED FORMULA (CKD-EPI 2020) 95 02/17 Specimen Type: PLASMA No comment entered. Ordering Provider: JAY HILARIO Report Released Date/Time : Feb 17, 2024 04:02 PM Reporting Lab: [place] [facility] [address] [place] [address] Performin g Lab: [place] [facility] [address] [place] [address] [facility] FOLATE (PB) FOLATE [MASS/VOLUM E] IN SERUM OR PLASMA >20.0ng/m L 7 - 20 02/17 H Specimen Type: SERUM No comment entered. Ordering Provider: JAY HILARIO Report Released Date/Time : Feb 17, 2024 04:02 PM Reporting Lab: [place] [facility] [address] [place] [address] Performin g Lab: [place] [facility] [address] [place] [address] [facility] CBC LEUKOCYTES [#/VOLUME] IN BLOOD BY AUTOMATED COUNT 10.6 10*3/uL 3.6 - 11.2 02/17 Specimen Type: BLOOD No comment entered. Ordering Provider: JAY HILARIO Report Released Date/Time : Feb 17, 2024 04:02 PM Reporting Lab: [place] [facility] [address] [place] [address] Performin g Lab: [place] [facility] [address] [place] [address] [facility] CBC ERYTHROCYTE S [#/VOLUME] IN BLOOD BY AUTOMATED COUNT 4.77 10*6/uL 4.10 - 5.70 02/17 Specimen Type: BLOOD No comment entered. Ordering Provider: JAY HILARIO Report Released Date/Time : Feb 17, 2024 04:02 PM Reporting Lab: [place] [facility] [address] [place] [address] Performin g Lab: [place] [facility] [address] [place] [address] [facility] CBC HEMOGLOBIN [MASS/VOLUM E] IN BLOOD 15.2 g/dL 13.1 - 16.8 02/17 Specimen Type: BLOOD No comment entered. Ordering Provider: JAY HILARIO Report Released Date/Time : Feb 17, 2024 04:02 PM Reporting Lab: [place] [facility] [address] [place] [address] Performin g Lab: [place] [facility] [address] [place] [address] [facility] CBC HEMATOCRIT [VOLUME FRACTION] OF BLOOD 45.3 38.2 - 48.4 02/17 Specimen Type: BLOOD No comment entered. Ordering Provider: JAY HILARIO Report Released Date/Time : Feb 17, 2024 04:02 PM Reporting Lab: [place] [facility] [address] [place] [address] 8 Performin g Lab: [place] [facility] [address] [place] [address] [facility] CBC MCV [ENTITIC VOLUME] BY AUTOMATED COUNT 95.0 fL 80.0 - 100.0 02/17 Specimen Type: BLOOD No comment entered. Ordering Provider: JAY HILARIO Report Released Date/Time : Feb 17, 2024 04:02 PM Reporting Lab: [place] [facility] [address] [place] [address] Performin g Lab: [place] [facility] [address] [place] [address] [facility] CBC MCH [ENTITIC MASS] BY AUTOMATED COUNT 31.9 pg 27.0 - 34.0 02/17 Specimen Type: BLOOD No comment entered. Ordering Provider: JAY HILARIO Report Released Date/Time : Feb 17, 2024 04:02 PM Reporting Lab: [place] [facility] [address] [place] [address] Performin g Lab: [place] [facility] [address] [place] [address] [facility] CBC MCHC [MASS/VOLUM E] BY AUTOMATED COUNT 33.6 g/dL 33.0 - 36.0 02/17 Specimen Type: BLOOD No comment entered. Ordering Provider: JAY HILARIO Report Released Date/Time : Feb 17, 2024 04:02 PM Reporting Lab: [place] [facility] [address] [place] [address] 8 Performin g Lab: [place] [facility] [address] [place] [address] [facility] CBC PLATELETS [#/VOLUME] IN BLOOD BY AUTOMATED COUNT 292 10*3/uL 150 - 400 02/17 Specimen Type: BLOOD No comment entered. Ordering Provider: JAY HILARIO Report Released Date/Time : Feb 17, 2024 04:02 PM Reporting Lab: [place] [facility] [address] [place] [address] 8 Performin g Lab: [place] [facility] [address] [place] [address] 8 [facility] CBC PLATELET MEAN VOLUME [ENTITIC VOLUME] IN BLOOD BY AUTOMATED COUNT 9.6 fL 7.5 - 11.2 02/17 Specimen Type: BLOOD No comment entered. Ordering Provider: JAY HILARIO Report Released Date/Time : Feb 17, 2024 04:02 PM Reporting Lab: [place] [facility] [address] [place] [address] Performin g Lab: [place] [facility] [address] [place] [address] [facility] CBC ERYTHROCYTE DISTRIBUTIO N WIDTH [RATIO] BY AUTOMATED COUNT 12.7 11.8 - 15.1 02/17 Specimen Type: BLOOD No comment entered. Ordering Provider: JAY HILARIO Report Released Date/Time : Feb 17, 2024 04:02 PM Reporting Lab: [place] [facility] [address] [place] [address] 8 Performin g Lab: [place] [facility] [address] [place] [address] [facility] CBC LYMPHOCYTES /100 LEUKOCYTES IN BLOOD BY AUTOMATED COUNT 27.6 02/17 Specimen Type: BLOOD No comment entered. Ordering Provider: JAY HILARIO Report Released Date/Time : Feb 17, 2024 04:02 PM Reporting Lab: [place] [facility] [address] [place] [address] Performin g Lab: [place] [facility] [address] [place] [address] 8 [facility] CBC MONOCYTES/1 00 LEUKOCYTES IN BLOOD BY AUTOMATED COUNT 10.8 02/17 Specimen Type: BLOOD No comment entered. Ordering Provider: JAY HILARIO Report Released Date/Time : Feb 17, 2024 04:02 PM Reporting Lab: [place] [facility] [address] [place] [address] Performin g Lab: [place] [facility] [address] [place] [address] [facility] CBC NEUTROPHILS /100 LEUKOCYTES IN BLOOD BY AUTOMATED COUNT 56.9 02/17 Specimen Type: BLOOD No comment entered. Ordering Provider: JAY HILARIO Report Released Date/Time : Feb 17, 2024 04:02 PM Reporting Lab: [place] [facility] [address] [place] [address] Performin g Lab: [place] [facility] [address] [place] [address] [facility] CBC EOSINOPHILS /100 LEUKOCYTES IN BLOOD BY AUTOMATED COUNT 3.4 02/17 Specimen Type: BLOOD No comment entered. Ordering Provider: JAY HILARIO Report Released Date/Time : Feb 17, 2024 04:02 PM Reporting Lab: [place] [facility] [address] [place] [address] 8 Performin g Lab: [place] [facility] [address] [place] [address] 8 [facility] CBC BASOPHILS/1 00 LEUKOCYTES IN BLOOD BY AUTOMATED COUNT 0.9 02/17 Specimen Type: BLOOD No comment entered. Ordering Provider: JAY HILARIO Report Released Date/Time : Feb 17, 2024 04:02 PM Reporting Lab: [place] [facility] [address] [place] [address] 8 Performin g Lab: [place] [facility] [address] [place] [address] 8 [facility] CBC LYMPHOCYTES [#/VOLUME] IN BLOOD BY AUTOMATED COUNT 2.92 10*3/uL 0.77 - 4.50 02/17 Specimen Type: BLOOD No comment entered. Ordering Provider: JAY HILARIO Report Released Date/Time : Feb 17, 2024 04:02 PM Reporting Lab: [place] [facility] [address] [place] [address] Performin g Lab: [place] [facility] [address] [place] [address] [facility] CBC MONOCYTES [#/VOLUME] IN BLOOD BY AUTOMATED COUNT 1.14 10*3/uL 0.19 - 0.8 02/17 H Specimen Type: BLOOD No comment entered. Ordering Provider: JAY HILARIO Report Released Date/Time : Feb 17, 2024 04:02 PM Reporting Lab: [place] [facility] [address] [place] [address] Performin g Lab: [place] [facility] [address] [place] [address] [facility] CBC NEUTROPHILS [#/VOLUME] IN BLOOD BY AUTOMATED COUNT 6.02 10*3/uL 2.10 - 8.00 02/17 Specimen Type: BLOOD No comment entered. Ordering Provider: JAY HILARIO Report Released Date/Time : Feb 17, 2024 04:02 PM Reporting Lab: [place] [facility] [address] [place] [address] Performin g Lab: [place] [facility] [address] [place] [address] [facility] CBC EOSINOPHILS [#/VOLUME] IN BLOOD BY AUTOMATED COUNT 0.36 10*3/uL 0.00 - 0.60 02/17 Specimen Type: BLOOD No comment entered. Ordering Provider: JAY HILARIO Report Released Date/Time : Feb 17, 2024 04:02 PM Reporting Lab: [place] [facility] [address] [place] [address] Performin g Lab: [place] [facility] [address] [place] [address] 8 [facility] CBC BASOPHILS [#/VOLUME] IN BLOOD BY AUTOMATED COUNT 0.10 10*3/uL 0.00 - 0.20 02/17 Specimen Type: BLOOD No comment entered. Ordering Provider: JAY HILARIO Report Released Date/Time : Feb 17, 2024 04:02 PM Reporting Lab: [place] [facility] [address] [place] [address] Performin g Lab: [place] [facility] [address] [place] [address] [facility] CBC IMMATURE GRANULOCYTE S/100 LEUKOCYTES IN BLOOD BY AUTOMATED COUNT 0.4 02/17 Specimen Type: BLOOD No comment entered. Ordering Provider: JAY HILARIO Report Released Date/Time : Feb 17, 2024 04:02 PM Reporting Lab: [place] [facility] [address] [place] [address] 8 Performin g Lab: [place] [facility] [address] [place] [address] [facility] CBC IMMATURE GRANULOCYTE S [#/VOLUME] IN BLOOD BY AUTOMATED COUNT 0.04 10*3/uL 0.00 - 0.05 02/17 Specimen Type: BLOOD No comment entered. Ordering Provider: JAY HILARIO Report Released Date/Time : Feb 17, 2024 04:02 PM Reporting Lab: [place] [facility] [address] [place] [address] Performin g Lab: [place] [facility] [address] [place] [address] [facility] TSH (MA-PB) THYROTROPIN [UNITS/VOLU ME] IN SERUM OR PLASMA 1.900 u[IU]/mL 0.47 - 5 02/17 Specimen Type: SERUM No comment entered. Ordering Provider: JAY HILARIO Report Released Date/Time : Feb 17, 2024 04:02 PM Reporting Lab: [place] [facility] [address] [place] [address] Performin g Lab: [place] [facility] [address] [place] [address] [facility] PROST. SPECIFIC AG.(PB-STL ) PROSTATE SPECIFIC AG [MASS/VOLUM E] IN SERUM OR PLASMA 4.36 ng/mL 0 - 4 02/17 H Specimen Type: SERUM No comment entered. Ordering Provider: JAY HILARIO Report Released Date/Time : Feb 17, 2024 04:02 PM Reporting Lab: [place] [facility] [address] [place] [address] Performin g Lab: [place] [facility] [address] [place] [address] [facility] Encounters Combined list of: 1) Encounters from Department of [facility] Affairs facilities going backup to the last 18 months, not all VA inpatient encounters are included; 2) Encounters from the Department of Defense facilities going backup to 280 months. Location Location Details Encounter Type Encounter Number Reason For Visit Attending Provider ADM Date DC Date Status Disposition Source [facility] Outpatient Encounter [id number] 01/22 [facility] [place] [facility] Outpatient Encounter [id number] KAILASH ABARCA 02/05 [place] [facility] Outpatient Encounter [id number] 02/15 [facility] OFFICE O/P EST MOD 30 MIN [id number] Diagnos is: ICD-10- CM I10 Essenti al (primar y) hyperte nsion GUERITA HILARIO G 02/17 [facility] Outpatient Encounter [id number] 03/04 [facility] [place] [facility] Outpatient Encounter [id number] ELISHA KIM IA 03/05 [place] [facility] [place] [facility] Outpatient Encounter [id number] 03/05 [place] [facility] [place] [facility] Outpatient Encounter [id number] 04/09 [place] [facility] Outpatient Encounter [id number] 05/27 [facility] Outpatient Encounter [id number] 05/28 [facility] Outpatient Encounter [id number] 06/17 [facility] Outpatient Encounter [id number] 06/21 [facility] [place] [facility] Outpatient Encounter [id number] 11/05 [place] [facility] [place] [facility] Outpatient Encounter [id number] 01/07 [place] [facility] [place] [facility] Outpatient Encounter [id number] 01/21 [place] [facility] [place] [facility] Outpatient Encounter [id number] 01/21 [place] [facility] Outpatient Encounter [id number] 02/02 [facility] [place] [facility] Outpatient Encounter [id number] ELISHA KIM IA 02/03 [place] [facility] [place] [facility] Outpatient Encounter [id number] 02/03 [place] [facility] [place] [facility] Outpatient Encounter [id number] 03/04 [place] [facility] Social History Combined list of available smoking, tobacco, and other social history from Department of Defense and Veterans Affairs facilities. Social History Type Response Date Comment 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 [facility] History of tobacco use TOBACCO USER OFFERED MEDS 01/28/2018 [facility] History of tobacco use TOBACCO USER OFFERED MEDS 01/24/2017 [facility] History of tobacco use TOBACCO OFFERED [facility]MOKING [facility]IN[facility] 01/15/2016 [facility] History of tobacco use TOBACCO OFFERED PT MEDS (PROVIDER) 07/10/2015 [facility] History of tobacco use TOBACCO OFFERED PT MEDS (PROVIDER) 06/14/2015 [facility] History of tobacco use TOBACCO OFFERED STOP SMOKING CLINIC 12/20/2014 [facility] History of tobacco use TOBACCO OFFERED STOP SMOKING CLINIC 09/16/2013 [facility] History of tobacco use TOBACCO OFFERED PT MEDS (PROVIDER) 08/11/2012 [facility] History of tobacco use TOBACCO OFFERED PT MEDS (PROVIDER) 07/09/2011 [facility] History of tobacco use TOBACCO OFFERED PT MEDS (PROVIDER) 12/10/2010 [facility] History of tobacco use TOBACCO OFFERED PT MEDS (PROVIDER) 11/06/2010 [facility] History of tobacco use TOBACCO OFFERED PT MEDS (PROVIDER) 03/13/2010 [facility] History of tobacco use TOBACCO OFFERED PT MEDS (PROVIDER) 06/21/2009 [facility] not want [facility] History of tobacco use TOBACCO OFFERED STOP SMOKING CLINIC 03/29/2008 Eldon JOYCE, has written RX from [facility] History of tobacco use TOBACCO OFFERED STOP SMOKING CLINIC 08/05/2007 patient [facility] not want [facility]
--- OUTSIDE RECORDS SUMMARY | 2025-03-04 11:02 | XMS_ITS | Patient Health Record ---
Author Organization [facility] Address [address] [place] [address] Care Team Providers Care Information Tech Name Role Phone [facility] Pietro WILSON Primary Care Provider Un available Andrea Alcala Unavailable [phone] Reason For Referral No Information Medications Medication SIG (Take, Route, Frequency, Duration) Notes Start Date End Date Status Simvastatin 20 MG Take 1 tablet(s) by mouth at bedtime Oral for 30 Simvastatin 20mg Tablet Take 1 tablet(s) by mouth at bedtime QS for 90 day(s) 05/25/2007 Active Aspirin 325 MG 1 tab(s) po q pm Oral for 30 Aspirin 325mg Caplet 1 tab(s) po q pm QS for 90 day(s) 05/25/2007 Active Nitroglycerin 0.4 MG Dissolve 1 tablet(s) under the tongue may repeat every 5 minutes. Maximum of 3 doses in 15 minutes Sublingual for 30 Nitroglycerin 0.4mg Tablets, Sublingual Dissolve 1 tablet(s) under the tongue may repeat every 5 minutes. Maximum of 3 doses in 15 minutes #4 (Four) 25 tablet bottle 05/25/2007 Active Metoprolol Tartrate 25 MG 1 tab(s) po q 12 hours Oral for 30 Metoprolol 25mg Tablet 1 tab(s) po q 12 hours QS for 90 day(s) 05/25/2007 Active Problems Problem Type SNOMED Code ICD Code Onset Dates Problem Status W/U Status Risk Notes Problem Lumbar spondylosis (654679534) Lumbar spondylosis (M47.816) Active confirmed Problem Benign essential hypertension (3620186) Essential hypertension, benign (401.1) 06/03/20 07 Active confirmed [id number]- Problem COPD - Chronic obstructive pulmonary disease (66834433) COPD (496) 06/03/20 Active confirmed [id number] 11- Problem Chest pain (78900162) Chest pain (786.51) 05/25/20 07 Problem resolved confirmed [facility] [id number]- Plan Of Treatment No Information Insurance Providers Payer Name Payer Address Payer Phone Subscriber Number Group Number Insured Name Patient Relationship to Insured Coverage Start Date Coverage End Date [employer] [address] [place] [phone] [id number] Maguire, Doyal Self - patient is the insured Medical (General) History Medical History History ICD Code UNREMARKABLE Surgical History Surgery Date(Month/Year) neck surgery 2019 Hospitalization History Reason Date(Month/Year) Neck surgery 2019
--- NOTE | 2025-03-04 11:14 | W.ED.ABDPA2 ---
HPI - Abdominal Pain General: Chief Complaint: Abdominal Pain Stated Complaint: appendicitis Time Seen by Provider: 03/04/25 11:04 History of Present Illness: 69-year-old man with history of hypertension and possibly A-fib as he is on amiodarone but does not appear to have any anticoagulation who presents the emergency room with right lower quadrant abdominal pain, nausea and fevers. This been going on for about 3 to 4 days now. He says he is been having fevers at night. He had some diarrhea today. He is had no surgeries on his belly before. No chest pain. No shortness of breath. No altered mental status. Related Data Home Medications ?Medication ?Instructions ?Recorded ?Confirmed albuterol sulfate 90 mcg/actuation 2 inh inhalation BID PRN Shortness 03/04/25 03/04/25 aerosol inhaler (Ventolin HFA) Of Breath Or Wheezing cholecalciferol (vitamin D3) 25 25 mcg PO DAILY 03/04/25 03/04/25 mcg (1,000 unit) capsule (Vitamin D3) famotidine 20 mg tablet 20 mg PO BID 03/04/25 03/04/25 fluticasone 100 mcg-salmeterol 50 1 inh inhalation Q12H 03/04/25 03/04/25 mcg/dose blistr powdr for inhalation (Michael Love) folic acid 1 mg tablet 1 mg PO DAILY 03/04/25 03/04/25 gabapentin 300 mg capsule 300 mg PO TID 03/04/25 03/04/25 hydrochlorothiazide 25 mg tablet 12.5 mg PO DAILY 03/04/25 03/04/25 lisinopril 20 mg tablet 10 mg PO DAILY 03/04/25 03/04/25 methocarbamol 750 mg tablet 750 mg PO TID PRN Pain 03/04/25 03/04/25 metoprolol tartrate 100 mg tablet 100 mg PO BID 03/04/25 03/04/25 naproxen 375 mg tablet 375 mg PO BID PRN Pain 03/04/25 03/04/25 tamsulosin 0.4 mg capsule 0.4 mg PO QPM 03/04/25 03/04/25 zinc acetate 50 mg (zinc) capsule 50 mg PO DAILY 03/04/25 03/04/25 Allergies Allergy/AdvReac Type Severity Reaction Status Date / Time No Known Allergies Allergy Verified 03/04/25 10:52 Review of Systems Narrative: Constitutional symptoms: Negative except as documented in HPI. Skin symptoms: Negative except as documented in HPI. Eye symptoms: Negative except as documented in HPI. ENMT symptoms: Negative except as documented in HPI. Respiratory symptoms: Negative except as documented in HPI. Cardiovascular symptoms: Negative except as documented in HPI. Gastrointestinal symptoms: Negative except as documented in HPI. Genitourinary symptoms: Negative except as documented in HPI. Musculoskeletal symptoms: Negative except as documented in HPI. Neurologic symptoms: Negative except as documented in HPI. Psychiatric symptoms: Negative except as documented in HPI. Endocrine symptoms: Negative except as documented in HPI. Physical Exam Narrative: EXAM NARRATIVE: General: Alert, patient appears ill Skin: Warm, dry. Head: Normocephalic, atraumatic. Neck: Supple, trachea midline. Eye: Extraocular movements are intact. Ears, nose, mouth and throat: Dry oral mucosa Cardiovascular: Regular, Normal peripheral perfusion. Respiratory: Lungs are clear to auscultation, respirations are non-labored, breath sounds are equal, Symmetrical chest wall expansion. Gastrointestinal: Soft, severe right lower quadrant tenderness to palpation with moderate left lower quadrant tenderness. Some guarding, Non distended Musculoskeletal: Normal ROM, no deformity. Neurological: Alert and oriented, No focal neurological deficit observed. Psychiatric: Cooperative, appropriate mood & affect. Course Vital Signs: Vital signs: Vital Signs Temperature 97.8 F 03/04/25 10:46 Pulse Rate 95 03/04/25 16:09 Respiratory Rate 17 03/04/25 14:36 Blood Pressure 149/69 03/04/25 16:09 Pulse Oximetry 98 03/04/25 16:09 Oxygen Delivery Me thod Room Air 03/04/25 11:34 MDM - Abdominal Pain Medical Decision Making Medical decision making: Differential diagnosis for this patient with right lower quadrant abdominal pain including but not limited to and based on the above HPI, review of systems and physical exam: Ureterolithiasis. Urinary tract infection. Appendicitis. colitis. small bowel obstruction. Crohn's flare. Pancreatitis. Cholelithiasis or cholecystitis. Hepatitis. Diverticulitis. Constipation. ovarian cyst. ovarian torsion Workup: Orders were placed to evaluate differential diagnosis based on the above differential, HPI and exam: Lab Review: Laboratory results were reviewed and interpreted by myself the emergency room physician. Significant leukocytosis with a white count of 17,000. Renal failure with a BUN/creatinine of 46 and 1.5. I do not have any comparison lab work. CRP is extremely elevated at over 400. CT of the abdomen pelvis: Initially read as a small bowel obstruction with diverticulitis with a possible pericolic abscess. Surgeon was consulted and she went and reviewed this with the radiologist and they have decided now that this looks more like an acute appendicitis. This was reviewed and interpreted by myself the emergency room physician. I also reviewed the radiology report. Consultation: I spoke with Dr. Hunter who is on-call for general surgery who was taken the patient to operating room emergently. Consultation: I spoke with Dr. Lopez who is on-call for the hospitalist service who agrees to admission to the ICU. I reviewed the patient's medical record Reexamination: Patient's blood pressure has improved with fluids. His pain is improved some with morphine. He still appears somewhat ill. He is no longer tachycardic. Assessment and plan: Acute appendicitis Acute renal failure Sepsis Dehydration -2.0 liters normal saline bolus were given. This was 30 mL liters per kilogram -Broad-spectrum antibiotics were administered. Zyvox and meropenem -Sepsis quality measures. -Lactic acid with a reflex was ordered. -Blood cultures were ordered. -I discussed the patient with the hospitalist on-call who is admitting the patient. - Discussed findings and plan with patient. Answered any questions. - All laboratory values were reviewed and interpreted personally by myself, the ER physician - All imaging was reviewed and interpreted personally by myself, the ER physician. - Evaluation and treatment of this problem were appropriate in the emergency setting Critical care: -I spent a total of >35 minutes of critical care time managing the patient, independent of any other practitioner. -The time involved in the performance of separately reportable procedures was not counted towards critical care time. Lab Data 03/04/25 11:25 03/04/25 11:25 Labs/Radiology: Radiology Impressions Abdomen/Pelvis CT 03/04/25 12:19 IMPRESSION: 1. Small bowel obstruction with transition point in the RIGHT lower quadrant. 2. Advanced diverticulosis of the sigmoid colon with acute diverticulitis and 2 cm paracolic abscess. There may be fistulous communication between the abscess and the small bowel in the pelvis. Marked inflammatory changes noted in the paracolic fat. 2. Advanced atherosclerotic disease of the aorta and major arteries in the pelvis as noted above. Additional chronic findings. Laboratory Results WBC 17.62 10^3/uL (3.29-11.43) H 03/04/25 11: RBC 4.92 10^6/uL (3.85-5.65) 03/04/25 11: Hgb 15.60 g/dL (11.27-16.99) 03/04/25 11: Hct 45.5 % (37-53) 03/04/25 11: MCV 92.5 fl (82-101) 03/04/25 11: MCH 31.7 pg (27-33) 03/04/25 11: MCHC 34.3 g/dL (30-55) 03/04/25 11: RDW 12.6 % (12.1-15.1) 03/04/25: Plt Count 229 10^3/cmm (157-399) 03/04/25 11: MPV 9.3 fL (7.4-10.4) 03/04/25 11: Neut % (Auto) 86.6 % 03/04/25 11: Lymph % (Auto) 5.4 % 03/04/25 11: [place] % (Auto) 7.0 % 03/04/25 11: Eos % (Auto) 0.1 % 03/04/25 11: Baso % (Auto) 0.3 % 03/04/25: Neut # (Auto) 15.26 10^3/uL (1.8-7.7) H 03/04/25 11: Lymph # (Auto) 1.0 10^3/uL (0.8-4.8) 03/04/25 11: [place] # (Auto) 1.2 10^3/uL (0.2-0.9) H 03/04/25 11: Eos # (Auto) 0.0 10^3/uL (0.0-0.8) 03/04/25 11: Baso # (Auto) 0.1 10^3/uL (0.0-0.1) 03/04/25 11: Nucleated RBC % (auto) 0 % 03/04/25 11: Nucleated RBCs # 0.0 /100WBC 03/04/25 11:25 Sodium 132 mmol/L (136-145) L 03/04/25 11:25 Potassium 4.0 mmol/L (3.5-5.1) 03/04/25 11:25 Chloride 89 mmol/L (98-107) L 03/04/25 11:25 Carbon Dioxide 29 mmol/L (22-29) 03/04/25 11:25 Anion Gap 18.0 (5-19) 03/04/25 11:25 BUN 46 mg/dL (8-23) H 03/04/25 11:25 Creatinine 1.5 mg/dL (0.7-1.2) H 03/04/25 11:25 GFR Calculation 46.7 mL/min (90-130) L 03/04/25 11: Glucose 123 mg/dL (65-115) H 03/04/25 11:25 Calculated Osmolality 287 mOsm/kg (285-295) 03/04/25 11:25 Lactic Acid 1.8 mmol/L (0.5-2.2) 03/04/25 11:25 Calcium 9.8 mg/dL (8.5-10.5) 03/04/25 11: Total Bilirubin 0.5 mg/dL (0.15-1.2) 03/04/25 11: AST 13 U/L (0-40) 03/04/25 11: ALT 9 U/L (0-41) 03/04/25 11:25 Alkaline Phosphatase 74 U/L (40-130) 03/04/25 11:25 C-Reactive Protein 430.2 mg/L (0.0-4.9) H 03/04/25 11:25 Total Protein 7.8 g/dL (6.6-8.7) 03/04/25 11:25 Albumin 3.9 g/dL (3.5-5.2) 03/04/25 11: Globulin 3.9 g/dL (1.3-4.6) 03/04/25 11: Lipase 8 U/L (13-60) L 03/04/25 11:25 Urine Color Dark yellow (Yellow) A 03/04/25 11:20 Urine Appearance Cloudy (CLEAR) A 03/04/25 11:20 Urine pH 5.5 (5-7) 03/04/25 11:20 Ur Specific [place] 1.025 (1.005-1.030) 03/04/25 11:20 Urine Protein 1+ (Negative) A 03/04/25 11:20 Urine Glucose (UA) Negative (Normal) 03/04/25 11:20 Urine Ketones 1+ (Negative) H 03/04/25 11:20 Urine Blood Negative (Negative) 03/04/25 11:20 Urine Nitrate Negative (Negative) 03/04/25 11:20 Urine Bilirubin 1+ (Negative) H 03/04/25 11:20 Urine Urobilinogen 1.0 mg/dL (Negative) 03/04/25 11:20 Ur Leukocyte Esterase Negative (Negative) 03/04/25 11:20 Urine RBC 3-5 /hpf (0-2) 03/04/25 11:20 Urine WBC 0-5 /hpf (0-5) 03/04/25 11:20 Ur Squamous Epith Cells 11-20 /hpf (0-5) H 03/04/25 11:20 Amorphous Sediment Not Reportable 03/04/25 11:20 Urine Bacteria None seen /hpf (NONE) 03/04/25 11:20 Hyaline Casts 64.96 /lpf 03/04/25 11:20 Fine Granular Casts 0-4 /lpf H 03/04/25 11:20 All radiology interpretation(s) finalized by discharge Discharge Plan Discharge Patient Disposition: Admitted As Inpatient Clinical Impression: Acute appendicitis, Acute renal failure, Sepsis Condition: Stable Coding Level of Care Code ED Sr. [employer] for Riya Tinoco
[2025-03-04] MEDS: ondansetron 2 mg/ML SDV 2 mL 4 MG IVP (11:34)
[2025-03-04] MEDS: HYDROmorphone 0.5 MG/0.5 ML INJ IVP (11:34)
[2025-03-04 11:36] LABS: Hematocrit 45.5 % (37-53); Hemoglobin 15.60 g/dL (11.27-16.99); Mean Corpuscular HGB Conc 34.3 g/dL (30-55); Mean Corpuscular Hemoglobin 31.7 pg (27-33); Mean Corpuscular Volume 92.5 fl (82-101); Nucleated Red Blood Cells % 0 %; Platelet Count 229 10^3/cmm (157-399); Red Blood Count 4.92 10^6/uL (3.85-5.65); White Blood Count 17.62 10^3/uL (3.29-11.43)
[2025-03-04 11:46] LABS: Glucose Urine UA Negative (Normal); Nitrate Urine Negative (Negative); Specific Gravity, Urine 1.025 (1.005-1.030)
[2025-03-04 11:51] LABS: Universal Test for UA Present (0)
[2025-03-04 11:51] LABS: Lactic Sepsis W/Reflex 1.8 mmol/L (0.5-2.2)
[2025-03-04 11:52] LABS: Alanine Aminotransferase 9 U/L (0-41); Albumin Level 3.9 g/dL (3.5-5.2); Alkaline Phosphatase 74 U/L (40-130); Anion Gap 18.0 (5-19); Aspartate Amino Transferase 13 U/L (0-40); Blood Urea Nitrogen 46 mg/dL (8-23); Calcium 9.8 mg/dL (8.5-10.5); Carbon Dioxide 29 mmol/L (22-29); Chloride 89 mmol/L (98-107); Creatinine Clr Calc Pharmacy 41.7914; Globulin 3.9 g/dL (1.3-4.6); Glucose 123 mg/dL (65-115); Lipase 8 U/L (13-60); Osmolality Calculated 287 mOsm/kg (285-295); Potassium 4.0 mmol/L (3.5-5.1); Sodium 132 mmol/L (136-145); Total Protein 7.8 g/dL (6.6-8.7)
[2025-03-04 12:06] LABS: UA Slide Review UA Slide Review Perf
--- NOTE | 2025-03-04 12:19 | CT_ITS ---
WS: [id number] Exam: CT abdomen pelvis w con* [id number] Date/Time of Exam: 03/04/2025 12:19 PM Reason For Exam: trauma DLP: 428.[address] scans at [facility] use at least one of these dose optimization techniques: automated exposure control; mA and/or kV adjustment per patient size (includes targeted exams where dose is matched to clinical indication); or iterative reconstruction. Lower lung zones are clear. There are multiple dilated small bowel loops with transition point in the RIGHT lower quadrant of the abdomen. This would suggest small bowel obstruction. Also noted is marked diverticulosis and acute diverticulitis of the sigmoid colon with 2 cm paracolic abscess. There may be fistulous communication between the abscess and small bowel. Extensive stranding and inflammatory change seen in the paracolic fat. No free air identified. The liver, spleen, stomach and pancreas are unremarkable. Prominent gallbladder but no stones. The abdominal aorta is normal in caliber. Normal kidneys and adrenal glands. The IVC is patent. Normal appendix visualized. No lymphadenopathy. Intac t urinary bladder. Prominent diverticulum projects along the posterior lateral RIGHT side of the bladder. Prostatomegaly. No pelvic lymphadenopathy. Small fat filled bilateral inguinal hernias. Advanced atherosclerotic disease of the abdominal aorta, iliac bifurcation and common femoral arteries. No destructive bone lesions. 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 CT/CT abdomen pelvis w con* [id number] IMPRESSION: 1. Small bowel obstruction with transition point in the RIGHT lower quadrant. 2. Advanced diverticulosis of the sigmoid colon with acute diverticulitis and 2 cm paracolic abscess. There may be fistulous communication between the abscess and the small bowel in the pelvis. Marked inflammatory changes noted in the pa racolic fat. 2. Advanced atherosclerotic disease of the aorta and major arteries in the pelv is as noted above. Additional chronic findings.
[2025-03-04] MEDS: iohexol 350 mg/mL 500 mL Btl (per mL) IV (13:06)
[2025-03-04] MEDS: linezolid premix 600 MG/300 ML PREMIX 300 MG IV (14:12)
--- NOTE | 2025-03-04 16:16 | PM.CONSULT ---
Providers/Reason For Consult Consulting Physician/Specialty*: Lila Hunter DO/General Surgery Reason for Consult*: Right lower quadrant abdominal pain Requesting Physician: Dr. Palma Primary Care Provider: Pietro Fletcher DO History of Present Illness History of Present Illness Miguel Maguire is a 69 year old male who has had lower abdominal pain that started 4 days ago, the pain migrated to the right lower quadrant. He denied fevers or chills. ER physician notified me that his systolic BP was in the 90s upon presentation, but that it improved to the 110s with IV fluids. The patient has had a little nausea, but no vomiting. He continues to have daily bowel movements, in fact he hads diarrhea. He denied abdominal distension or bloating. His last colonoscopy was performed 2 years ago and he was told that he did not have a cancer or polyp, but that he may have had inflammation or possibly an abscess (?), no further recommendations were made at that time. He also thinks that he may have had a stomach ulcer in the past, but he has never had an EGD. He does not know his medical problems very well, he stated that he may have pre-diabetes. He did not know that he has a-fib. He likely has COPD and he smokes about 1 pack per day. He does not take any blood thinning medications that he is aware of. Review of Systems General: Reports: 10 or more systems reviewed and unremarkable except in HPI and below Const: Denies: fever(s) or chills GI: Reports: abdominal pain, nausea and diarrhea; Denies: vomiting, constipation, bloating or GI cramping : Denies: difficulty urinating or dysuria Medications/Allergies Home Medications ?Medication ?Instructions ?Recorded ?Confirmed ?Last Taken ?Type albuterol sulfate 90 mcg/actuation 2 inh inhalation BID PRN Shortness 03/04/25 03/04/25 Unknown History aerosol inhaler (Ventolin HFA) Of Breath Or Wheezing cholecalciferol (vitamin D3) 25 25 mcg PO DAILY 03/04/25 03/04/25 Unknown History mcg (1,000 unit) capsule (Vitamin D3) famotidine 20 mg tablet 20 mg PO BID 03/04/25 03/04/25 03/04/25 History fluticasone 100 mcg-salmeterol 50 1 inh inhalation Q12H 03/04/25 03/04/25 Unknown History mcg/dose blistr powdr for inhalation (Rosaliefela Kate) folic acid 1 mg tablet 1 mg PO DAILY 03/04/25 03/04/25 03/04/25 History gabapentin 300 mg capsule 300 mg PO TID 03/04/25 03/04/25 03/04/25 History hydrochlorothiazide 25 mg tablet 12.5 mg PO DAILY 03/04/25 03/04/25 03/04/25 History lisinopril 20 mg tablet 10 mg PO DAILY 03/04/25 03/04/25 03/04/25 History methocarbamol 750 mg tablet 750 mg PO TID PRN Pain 03/04/25 03/04/25 03/03/25 History metoprolol tartrate 100 mg tablet 100 mg PO BID 03/04/25 03/04/25 03/04/25 History naproxen 375 mg tablet 375 mg PO BID PRN Pain 03/04/25 03/04/25 03/04/25 History tamsulosin 0.4 mg capsule 0.4 mg PO QPM 03/04/25 03/04/25 03/03/25 19:00 History zinc acetate 50 mg (zinc) capsule 50 mg PO DAILY 03/04/25 03/04/25 03/04/25 History Allergies Allergy/AdvReac Type Severity Reaction Status Date / Time No Known Allergies Allergy Verified 03/04/25 10:52 Vitals/I&O/Wt Last Vital Signs Temp 97.8 F 03/04/25 10:46 Pulse 95 03/04/25 16:09 Resp 17 03/04/25 14:36 BP 149/69 03/04/25 16:09 Pulse Ox 98 03/04/25 16:09 O2 Del Method Room Air 03/04/25 11:34 03/04/25 03/04/25 03/04/25 06:59 14:59 22:59 Intake Total 1000 / 1000 Balance 1000 / 1000 Weight last 48 hrs Weight 145 lb Physical Exam Const: COMMON NORMALS: no acute distress, average body habitus, patient oriented x3 and alert Chest: COMMONS NORMALS: normal inspection of the chest Resp: COMMON NORMALS: normal respiratory effort and No use of accessory muscles GI: COMMON NORMALS: Soft to palpation PALPATION: Yes Soft to palpation OTHER: Abdomen non-distended. There is focal tenderness to palpation in the RLQ of the abdodmen and a positive McBurney'r sign. There was also a positive Rovsing's sign. Neuro: COMMON NORMALS: patient oriented x3 SENSORIUM/ORIENTATION: Yes alert Data 03/04/25 11:25 03/04/25 11:25 Micro: Microbiology 03/04/25 11:45 Blood Culture - Preliminary Blood SPECIMEN COLLECTED 03/04/25 11:25 Blood Culture - Preliminary Blood SPECIMEN COLLECTED A&P Assessment and plan 1. Acute appendicitis: ADDENDUM WS: [id number] Case reviewed with Dr. Hunter There is a blind-ending dilated enhancing structure visualized in the RIGHT lower quadrant which crosses midline to the LEFT lower quadrant. This is suspicious for acute appendicitis. Surrounding fluid and edema at the base of the appendix with dilatation although no free air. No drainable abscess or fluid collection. RIGHT colon in this area is collapsed with some dilated and collapsed surrounding loops of small bowel with retraction presumably due to inflammation and reactive ileus. The sigmoid colon with diverticuli also closely abuts this area. Suspected appendicitis is best seen on coronal imaging image 30 and 31 series 6. Also sagittal imaging series 7 image 33. Notable images were also bookmarked Case discussed with Dr. Hunter at 314pm on 03/04/05 -- Initial CT reading was suggestive of acute diverticulitis with possible fistula and paracolic abscess, possible SBO with transition point. --The patient history and physical exam did not fit the picture of diverticulitis, so I went to talk to Dr. Vergara and review the images. -- Imaging more consistent with acute appendicitis (see above) -- Plan for diagnostic laparoscopy, possible appendectomy, possible laparotomy, possible open, possible bowel resection, probable drain placement, and possible ostomy creation: -- Prior to the surgery, the surgery and what it would entail were discussed with the patient in detail, including the risks, benefits, and potential alternative treatment options. Risks included, but were not limited to infection, bleeding, injury to intraabdominal organs/bowel, hernia formation, postoperative abscess, anastomotic or staple line leak, need for placement of a surgical drain, need for ostomy creation, need for further surgery or interventional radiology procedures, negative appendectomy, and heart or lung complications. All question were answered and the patient wished to proceed with surgery. 2. Acute renal failure: 3. Sepsis: 4. Peritonitis (acute) generalized: 5. COPD (chronic obstructive pulmonary disease): 6. Leukocytosis: 7. Diarrhea: PDMP PDMP Reviewed: Not Reviewed Coding Level of Care Code Acute Code for [facility] Fwd Diagnoses Acute appendicitis K35.80 Acute renal failure N17.9 Sepsis A41.9 Peritonitis (acute) generalized K65.0 COPD (chronic obstructive pulmonary disease) J44.9 Leukocytosis D72.829 Diarrhea R19.7
--- NOTE | 2025-03-04 16:30 | ANES.PREANE2 ---
Pre-Anesthetic Assessment Height/Weight: Height 5 ft 4 in Weight 145 lb Temp Pulse Resp BP Pulse Ox O2 Del Method 97.8 F 95 17 149/69 98 Room Air 03/04/25 10:46 03/04/25 16:09 03/04/25 14:36 03/04/25 16:09 03/04/25 16:09 03/04/25 11:34 Preop Diagnosis: Concern for appendicitis Social Tobacco and No alcohol Exam alert, oriented x 3, clear to auscultation bilaterally and regular rate & rhythm Airway Submandibular: within normal limits Cervical ROM: within normal limits Mallampati: Class III Comments: Comments: Very poor dentition, few teeth left. Denies any loose Anesthetic Plan ASA status: 4 Anesthesia: General Other: No prior issues with anesthesia Patient presents to the ER today with abdominal pain, concerns for ruptured appendix,possible bowel obstruction on CT with possible fistula between abscess and small bowel Patient states that he has been dealing with pain since Friday. Initially was vomiting earlier in the week but nothing recently No food today, few sips of water this morning History of GERD on Pepcid Smokes nicotine Hypertension on lisinopril and hydrochlorothiazide Vital stable in the ER, afebrile Labs reviewed, WBC 17.6, NA 132, creatinine 1.5 Patient states that he is able to ambulate on his own at home Plan for GETA Medications/Allergies Home Medications ?Medication ?Instructions ?Recorded ?Confirmed ?Last Taken ?Type albuterol sulfate 90 mcg/actuation 2 inh inhalation BID PRN Shortness 03/04/25 03/04/25 Unknown History aerosol inhaler (Ventolin HFA) Of Breath Or Wheezing cholecalciferol (vitamin D3) 25 25 mcg PO DAILY 03/04/25 03/04/25 Unknown History mcg (1,000 unit) capsule (Vitamin D3) famotidine 20 mg tablet 20 mg PO BID 03/04/25 03/04/25 03/04/25 History fluticasone 100 mcg-salmeterol 50 1 inh inhalation Q12H 03/04/25 03/04/25 Unknown History mcg/dose blistr powdr for inhalation (Wixela Inhub) folic acid 1 mg tablet 1 mg PO DAILY 03/04/25 03/04/25 03/04/25 History gabapentin 300 mg capsule 300 mg PO TID 03/04/25 03/04/2503/04/25 History hydrochlorothiazide 25 mg tablet 12.5 mg PO DAILY 03/04/25 03/04/25 03/04/25 History lisinopril 20 mg tablet 10 mg PO DAILY 03/04/25 03/04/25 03/04/25 History methocarbamol 750 mg tablet 750 mg PO TID PRN Pain 03/04/25 03/04/25 03/03/25 History metoprolol tartrate 100 mg tablet 100 mg PO BID 03/04/25 03/04/25 03/04/25 History naproxen 375 mg tablet 375 mg PO BID PRN Pain 03/04/25 03/04/25 03/04/25 History tamsulosin 0.4 mg capsule 0.4 mg PO QPM 03/04/25 03/04/25 03/03/25 19:00 History zinc acetate 50 mg (zinc) capsule 50 mg PO DAILY 03/04/25 03/04/25 03/04/25 History Allergies Allergy/AdvReac Type Severity Reaction Status Date / Time No Known Allergies Allergy Verified 03/04/25 10:52 Data Anesthesia 03/04/25 11:25 03/04/25 11:25 Short CBC 03/04/25 Range/Units 11:25 WBC 17.62 H (3.29-11.43) 10^3/uL Hgb 15.60 (11.27-16.99) g/dL Hct 45.5 (37-53) % MCV 92.5 (82-101) fl Plt Count 229 (157-399) 10^3/cmm Neut % (Auto) 86.6 % Neut # (Auto) 15.26 H (1.8-7.7) 10^3/uL BMP 03/04/25 11:25 Sodium 132 L Potassium 4.0 Chloride 89 L Carbon Dioxide 29 BUN 46 H Creatinine 1.5 H Glucose 123 H Calcium 9.8 Liver Function 03/04/25 Range/Units 11:25 Total Bilirubin 0.5 (0.15-1.2) mg/dL AST 13 (0-40) U/L ALT 9 (0-41) U/L Alkaline Phosphatase 74 (40-130) U/L Albumin 3.9 (3.5-5.2) g/dL Urine 03/04/25 Range/Units 11:20 Urine Color Dark yellow A (Yellow) Urine Appearance Cloudy A (CLEAR) Urine pH 5.5 (5-7) Ur Specific [place] 1.025 (1.005-1.030) Urine Protein 1+ A (Negative) Urine Glucose (UA) Negative (Normal) Urine Ketones 1+ H (Negative) Urine Nitrate Negative (Negative) Urine Bilirubin 1+ H (Negative) Ur Leukocyte Esterase Negative (Negative) Urine RBC 3-5 (0-2) /hpf Urine WBC 0-5 (0-5) /hpf Coags 03/04/25 11:25 C-Reactive Protein 430.2 H Microbiology 03/04/25 11:45 Blood Culture - Preliminary Blood SPECIMEN COLLECTED 03/04/25 11:25 Blood Culture - Preliminary Blood SPECIMEN COLLECTED
--- NOTE | 2025-03-04 17:11 | PM.HP ---
Providers/Chief Complaint Primary Care Provider: Pietro Fletcher DO Chief Complaint: appendicitis History of Present Illness Seen in PACU. Miguel Maguire is a 69 year old male with past medical history of hypertension, BPH presented to the ER today because of abdominal distention, abdominal pain more so in the right lower quadrant worsening over last 4 days along with episode of vomiting 4 days ago. Patient has been having bowel movements which are at his baseline with last bowel movement today morning. Has been eating and drinking less with decreased urination over the last 2 days. In the ER at first he was found to be hypotensive with blood pressure in 90s systolics and he received 2 L IV fluid bolus after which it improved to 126 systolics on examination. He was found to have leukocytosis, acute kidney injury with hyponatremia, CT abdomen pelvis concerning for possible severe appendicitis. Medicine team is consulted for further management and admission. Patient is being taken to the OR for further management. Review of Systems General: Reports: 10 or more systems reviewed and unremarkable except in HPI and below Const: Denies: fever(s), chills, body aches, change in appetite, change in weight, malaise, night sweats, diaphoresis, change in sleep pattern, daytime sleepiness or snoring Eyes: Denies: change in vision, blurry vision, photophobia, eye discomfort or eye discharge ENMT: Denies: throat pain, enlarged tonsils, hoarseness, mouth pain, oral sores, dry mouth, tinnitus, nasal congestion or post nasal drip Card: Denies: chest pain, palpitations, irregular heart rhythm, edema, swelling of feet/ankles, lightheadedness, syncope, pre-syncope, dyspnea on exertion, orthopnea, leg pain with exertion or acrocyanosis Resp: Denies: dyspnea, productive cough, non-productive cough, wheezing, stridor, pain on inspiration, change in phlegm color, hemoptysis or chest congestion GI: Denies: abdominal pain, nausea, vomiting, hematemesis, coffee ground emesis, dysphagia, heartburn, diarrhea, constipation, bloating, GI cramping, change in bowel habits, pain on defecation, hematochezia or melena : Denies: flank pain, difficulty urinating, dysuria, urinary frequency, urinary urgency, urinary hesitancy, urinary dribbling, difficulty starting urination, change in urine stream, nocturia or hematuria Musc: Denies: neck pain, back pain, extremity pain, joint pain, joint swelling, joint redness, joint stiffness or limited range of motion Neuro: Denies: headache(s), numbness in extremities, weakness in extremities, sensory changes, lack of coordination, difficulty walking, frequent falls, dizziness, vertigo, confusion, Slurred speech present, difficulty communicating thoughts or seizure-like activity Psych: Denies: anxiety, depression, mood swings, panic attacks, hopelessness or irritability Endo: Denies: polyuria, polydipsia, tired all the time, cold intolerance, excessive sweating, flushing or heat intolerance Jeff/Lymph: Denies: easy bruising or easy bleeding All/Imm: Denies: tongue swelling, facial swelling or acute wheezing Medications/Allergies Home Medications ?Medication ?Instructions ?Recorded ?Confirmed ?Last Taken ?Type albuterol sulfate 90 mcg/actuation 2 inh inhalation BID PRN Shortness 03/04/25 03/04/25 Unknown History aerosol inhaler (Ventolin HFA) Of Breath Or Wheezing cholecalciferol (vitamin D3) 25 25 mcg PO DAILY 03/04/25 03/04/25 Unknown History mcg (1,000 unit) capsule (Vitamin D3) famotidine 20 mg tablet 20 mg PO BID 03/04/25 03/04/25 03/04/25 History fluticasone 100 mcg-salmeterol 50 1 inh inhalation Q12H 03/04/25 03/04/25 Unknown History mcg/dose blistr powdr for inhalation (Rosalieela Inhub) folic acid 1 mg tablet 1 mg PO DAILY 03/04/25 03/04/25 03/04/25 History gabapentin 300 mg capsule 300 mg PO TID 03/04/25 03/04/25 03/04/25 History hydrochlorothiazide 25 mg tablet 12.5 mg PO DAILY 03/04/25 03/04/25 03/04/25 History lisinopril 20 mg tablet 10 mg PO DAILY 03/04/25 03/04/25 03/04/25 History methocarbamol 750 mg tablet 750 mg PO TID PRN Pain 03/04/25 03/04/25 03/03/25 History metoprolol tartrate 100 mg tablet 100 mg PO BID 03/04/25 03/04/25 03/04/25 History naproxen 375 mg tablet 375 mg PO BID PRN Pain 03/04/25 03/04/25 03/04/25 History tamsulosin 0.4 mg capsule 0.4 mg PO QPM 03/04/25 03/04/25 03/03/25 19:00 History zinc acetate 50 mg (zinc) capsule 50 mg PO DAILY 03/04/25 03/04/25 03/04/25 History Allergies Allergy/AdvReac Type Severity Reaction Status Date / Time No Known Allergies Allergy Verified 03/04/25 10:52 PFSH Acute PFSH: Medical History (Updated 03/04/25 @ 17:14 by Jp Garcia MD) Smoker BPH (benign prostatic hyperplasia) Hypertension Surgical History (Updated 03/04/25 @ 17:14 by Jp Garcia MD) H/O cervical spine surgery Social History (Updated 03/04/25 @ 17:15 by Jp Garcia MD) Smoking and tobacco/nicotine status: current every day tobacco/nicotine user cigarettes Packs smoked per day: 1 Alcohol intake: current Alcohol intake frequency: few times a month Caregiver/support person: Yes Lives independently: Yes Household members: family Housing: House Vitals/I&O/Wt Last Vital Signs Temp 97.2 F L 03/04/25 16:40 Pulse 78 03/04/25 16:40 Resp 18 03/04/25 16:40 BP 126/68 03/04/25 16:40 Pulse Ox 97 03/04/25 16:40 O2 Del Method Room Air 03/04/25 16:40 03/04/25 03/04/25 03/04/25 06:59 14:59 22:59 Intake Total 1000 / 1000 Balance 1000 / 1000 Weight last 48 hrs Weight 65.771 kg Physical Exam Narrative: General: No acute distress, AO x3 HEENT: PERRLA, pupils bilaterally equal and reactive Chest: Normal vesicular breath sounds, no added sounds, equal good air entry bilaterally CVS: S1-S2 regular, no murmurs, no tachycardia, no gallops, no rubs Abdomen: Soft, tender, guarding present no organomegaly, bowel sounds present but sluggish Neuro: No focal deficits, no facial deformity, AO x3, power 5/5 in all limbs Data 03/04/25 11:25 03/04/25 11:25 Micro: Microbiology 03/04/25 11:45 Blood Culture - Preliminary Blood SPECIMEN COLLECTED 03/04/25 11:25 Blood Culture - Preliminary Blood SPECIMEN COLLECTED A&P Assessment and plan 1. Sepsis: SIRS: Tachycardic, Febrile, Leukocytosis Source: Peritonitis/appendicitis End organ damage: Acute kidney injury Lactic acid within normal limits Patient did receive full 30 mL/kg BW. Monitor blood pressures. Keep mean artery pressure 65 mmHg. Check blood culture, MRSA swab, urinalysis, bacterial antigen, trend procalcitonin. Empirically start patient on IV vancomycin and Zosyn. If MRSA swab negative will discontinue vancomycin. D5 NS at 100 cc/h. No 2. Acute renal failure: Most likely in setting of sepsis leading to ATN. Appreciate urinalysis. Check urine lites and creatinine. Medical reconciliation done for nephrotoxic drugs including hydrochlorothiazide. Monitor BMP daily. Monitor urine output. Horowitz catheterization. 3. Acute appendicitis: With concerns for peritonitis. Surgery on board. Plan for OR. Anticoagulation, diet advancement from a wound care to surgical team postoperatively. 4. Peritonitis (acute) generalized: 5. Hypertension: Goal blood pressure less than 140/90 mmHg. Takes lisinopril, hydrochlorothiazide at home. Hold antihypertensive for now. Depending on clinical improvement will plan for further treatment of antihypertensive. Maintain mean artery pressure 65. 6. Smoker: Monitor oxygen levels. Maintain over 90. Pulmicort twice daily, DuoNeb every 6 hours for now. Plan: Full code N.p.o. Protonix for PUD prophylaxis SCD for DVT prophylaxis. Postoperatively as per surgical team. PDMP PDMP Reviewed: Not Reviewed Attestations Medical Necessity Statement*: Admission for more than 2 midnights for management of sepsis in setting of acute kidney injury, peritonitis due to acute appendicitis Diagnoses Sepsis A41.9 Acute renal failure N17.9 Acute appendicitis K35.80 Peritonitis (acute) generalized K65.0 Hypertension I10 Smoker F17.200
[2025-03-04] MEDS: BUPivacaine 0.5% INJ 30 mL (17:52)
[2025-03-04] MEDS: lidocaine-epi 1% 20 mL INJ (17:52)
--- NOTE | 2025-03-04 19:17 | ANE.PACU2 ---
Inpatient post-anesthesia follow up: Airway intact: Yes Vital signs: Temperature 97.7 F Pulse Rate 98 Respiratory Rate 12 Blood Pressure 150/63 Pulse Oximetry 91 Oxygen Delivery Me thod Nasal Cannula Oxygen Flow Rate 2 Fraction of Inspir ed Oxygen 2 Hydration adequate: Yes Nausea and vomiting: No Pain level: 2 Mental status: Baseline
[2025-03-04] MEDS: fentaNYL 50 mcg/mL INJ 2mL IVP ×2 (19:37→19:58)
--- NOTE | 2025-03-04 19:38 | P.OP_ITS ---
Operative Report Date of procedure: March 04, 2025 Pre-op diagnosis: -- Suspected perforated acute appendicitis - due to clinical history, physical exam findings, and CT imaging -- Peritonitis --Sepsis, leukocytosis Post-op diagnosis: -- Appendicitis with peritoneal abscess K35.33 -- Acute appendicitis K35.80 -- Sepsis A41.9 -- Acute perforated appendicitis K35.32 -- Acute appendicitis with generalized peritonitis and gangrene K35.209 Post-op findings: See below in findings Procedure done: Laparoscopic appendectomy Placement of 10 mm flat PATSY drain Specimens removed/disposition: -- Peritoneal fluid for Gram stain, aerobic and anaerobic cultures and sensitivities -- Appendix for histopathology Pathology: See above Surgeon: Lila Hunter DO Anesthesia: General and Local Estimated blood loss: -- Less than 2 cc Complications: None apparent Findings: The appendix was perforated, friable, inflamed, enlarged, and edematous. There was a significant amount of inflammatory adhesions in the right lower quadrant of the abdomen adjacent to the appendix, the terminal ileum, and the appendiceal base. There were black/camargo portions of the appendix suggesting a gangrenous/necrotic appendix. Just lateral to the base of the appendix in the right paracolic gutter there was a periappendiceal seal abscess encased in an inflammatory rind. There was opaque yellow/green purulent fluid extending from the right lower quadrant of the abdomen to the right paracolic gutter and right lateral of the dome of the liver. Additionally, there was a small amount of yellow?green purulent fluid in the pelvis. Procedure: Prior to the surgery, the surgery and what it would entail were discussed with the patient in detail, including the risks, benefits, and potential alternative treatment options. Risks included, but were not limited to infection, bleeding, injury to intraabdominal organs/bowel, hernia formation, postoperative abscess, anastomotic leak or staple line leak, need for placement of a surgical drain, need for possible bowel resection, need for ostomy creation, need for further surgery or interventional radiology procedures, negative appendectomy, and heart or lung complications. It was discussed, that in the setting of perforated appendicitis, delayed presentation, and possible periappendiceal abscess, that the risk of development of a postoperative intra-abdominal abscess would be higher. All question were answered and the patient wished to proceed with surgery. After informed consent was contained, the patient was brought back to the operative suite and placed in a supine position. General anesthesia and endotracheal intubation were accomplished by the anesthesiologist per anesthesia protocol. The abdomen was prepped and draped in the usual sterile fashion. A timeout verifying the correct patient, procedure to be performed, surgeon, patient medication allergies and preoperative antibiotics was performed. Local anesthetic was infiltrated within the skin and subcutaneous tissues at each incision site prior to making the incisions. A supraumbilical incision was made with a #11 scalpel blade. The umbilical stalk was grasped with a Ingrid clamp and while elevating the fascia a Veress needle was placed via the incision. An aspiration test was negative and a saline drop test was positive. The abdomen was insufflated with sterile CO2 via the Veress needle, opening pressures were low and the abdomen was insufflated to 15 mmHg. Utilizing Visiport technique a 5 mm port was placed visualizing all abdominal wall planes upon insertion. No intra-abdominal injury was noted upon visualization. An additional 5 mm working port was placed in the suprapubic region under direct visualization. Because a diagnostic laparoscopy was planned to verify that the diagnosis was in fact acute appendicitis and completing the surgery laparoscopically would be feasible, an additional 5 mm port in the left lower quadrant was placed under direct visualization, to facilitate moving the bowel to locate the appendix without committing to a 12 mm port/incision. The abdomen was inspected laparoscopically, including the right upper quadrant, left upper quadrant, right lower quadrant, left lower quadrant and pelvis. A periappendiceal abscess, yellow?green purulent fluid, and a necrotic/gangrenous appendix were visualized. The 5 mm left lower quadrant port was replaced with a 12 mm left lower quadrant port (to accommodate a laparoscopic stapler) under direct visualization. The purulent fluid in the right lower quadrant of the abdomen, pelvis, and right paracolic gutter up to the dome of the liver was aspirated. The periappendiceal abscess that was located adjacent to the base of the appendix was also aspirated, then gently irrigated, and aspirated again a portion of the aspirated peritoneal fluid was collected and sent for Gram stain, aerobic and anaerobic cultures and sensitivities. The inflammatory adhesions were carefully and bluntly dissected with a laparoscopic Kitner. The appendix was elevated being careful to not disrupt it or compress it excessively (as it was extremely friable, inflamed, and tense) and utilizing laparoscopic LigaSure the mesoappendix was divided. Utilizing blunt dissection, a window was made in the bloodless fold of Treves. The remainder of the mesoappendix was divided with laparoscopic LigaSure until the base of the appendix was reached. The base of the appendix was delicately circumferentially dissected. Utilizing a [employer] laparoscopic linear stapler with a 45 blue load, the appendix was divided at its base. The staple line was intact, and there was no bleeding or leak noted at the staple line. Additional fluid, in the right lower quadrant of the abdomen, pelvis, and right paracolic gutter gutter up to the dome of the liver was again aspirated. 4 L of warm sterile saline were utilized to irrigate these areas, and the fluid was subsequently aspirated utilizing the suction venetian blind machine operator. Again, the staple line was inspected and there was no leak or bleeding noted. A #10 flat PATSY drain was placed in the right lower quadrant of the abdomen and pelvis and it exited out of the suprapubic port site. It was secured to the skin at this site with a 2-0 nylon suture. All sponge, needle, and instrument counts were noted to be correct. The fascia at that 12 mm port site in the left lower quadrant of the abdomen was closed under direct visualization with an 0-Vicryl suture in a [id number] fashion utilizing a Chong-Stephane suture passer. Each incision site was irrigated with warm sterile saline. The deep subcutaneous tissue at the supraumbilical site was reapproximated with a 0 Vicryl suture. The skin edges of each incision were reapproximated with 4-0 Monocryl suture. Dermabond skin glue was placed over top of each incision site. The patient tolerated the procedure well and was transferred to the postanesthesia care unit in stable and satisfactory condition. Postoperative plan: As needed pain medication IV antibiotics N.p.o. except ice chips, and likely advance to clear liquid diet tomorrow morning Ambulate 4 times daily SCDs and subcu Lovenox Incentive spirometry every hour while awake Continue drain care and management, empty PATSY drain 4 times daily and strip drain tubing 4 times daily
[2025-03-04] MEDS: pantoprazole 40 mg SDV IVP (19:42)
[2025-03-04] MEDS: piperacillin-tazobactam 3.375 GM in sodium chloride 0.9% (plus) 50 ML IV (19:42)
[2025-03-04] MEDS: dextrose 5%-sod chloride 0.9% 1,000 ML 75 ML IV (19:56)
[2025-03-04 20:17] LABS: Estmated Average Glucose 114; Hemoglobin A1C 5.6 % (4.0-6.0)
[2025-03-04] MEDS: morphine 4 mg/mL SDV 1 mL 2 MG IVP ×2 (20:26→22:14)
[2025-03-04 20:46] LABS: Iron 15 ug/dL (59-158); Thyroid Stimulating Hormone 2.11 uIU/mL (0.27-4.20); Total Iron Binding Capacity 302 mcg/dl; Unsaturated Iron Binding 287 ug/dL (112-347); Vitamin B12 450 pg/mL (232-1245)
--- NOTE | 2025-03-04 22:29 | PC.NURSE ---
Called report to [facility]. Called daughter, Aileen, to let her know we were taking pt upstairs.
[2025-03-04 22:46] LABS: MRSA PCR OZH (swab) NOT DETECTED (Negative)
[2025-03-05] VITALS (13 sets, daily range): BP systolic 136–161; BP diastolic 64–72; PULSE 63–88; RESP 16–18; TEMP 36.4–37.2; O2SAT 92–96
[2025-03-05 04:11] LABS: Hematocrit 34.6 % (37-53); Hemoglobin 11.50 g/dL (11.27-16.99); Mean Corpuscular HGB Conc 33.2 g/dL (30-55); Mean Corpuscular Hemoglobin 31.3 pg (27-33); Mean Corpuscular Volume 94.3 fl (82-101); Nucleated Red Blood Cells % 0 %; Platelet Count 207 10^3/cmm (157-399); Red Blood Count 3.67 10^6/uL (3.85-5.65); White Blood Count 13.93 10^3/uL (3.29-11.43)
[2025-03-05 04:32] LABS: Alanine Aminotransferase 6 U/L (0-41); Albumin Level 2.9 g/dL (3.5-5.2); Alkaline Phosphatase 56 U/L (40-130); Anion Gap 16.8 (5-19); Aspartate Amino Transferase 10 U/L (0-40); Blood Urea Nitrogen 22 mg/dL (8-23); Calcium 7.5 mg/dL (8.5-10.5); Carbon Dioxide 22 mmol/L (22-29); Chloride 103 mmol/L (98-107); Creatinine Clr Calc Pharmacy 76.9542; Globulin 2.7 g/dL (1.3-4.6); Glucose 205 mg/dL (65-115); Magnesium 2.2 mg/dL (1.7-2.3); Osmolality Calculated 295 mOsm/kg (285-295); Potassium 3.8 mmol/L (3.5-5.1); Sodium 138 mmol/L (136-145); Total Protein 5.6 g/dL (6.6-8.7)
[2025-03-05 04:36] LABS: Procalcitonin 2.66 ng/mL (0-0.5)
[2025-03-05] MEDS: piperacillin-tazobactam 3.375 GM in sodium chloride 0.9% (plus) 50 ML IV ×3 (04:41→20:34)
[2025-03-05 04:43] LABS: Cholesterol 116 mg/dL (0-200); HDL Cholesterol 22 mg/dL (60-100); Triglycerides 104 mg/dL (0-150)
[2025-03-05] MEDS: vancomycin 500 MG in sodium chloride 0.9% (plus) 100 ML 200 MG IV (08:09)
[2025-03-05] MEDS: dextrose 5%-sod chloride 0.9% 1,000 ML 75 ML IV (08:09)
[2025-03-05] MEDS: morphine 4 mg/mL SDV 1 mL 2 MG IVP ×2 (09:34→14:42)
--- NOTE | 2025-03-05 12:19 | PC.CHAP ---
Pastoral Care Encounter/Spiritual Assessment Type of Contact [] Declined educational director visit [] Patient/Family/Request visit [] Outpatient visit [] Follow-up visit [] Physician referral [] Code/Alert [x] Routine visit [] Staff referral [] Actively dying [] Patient sleeping [] Family support [] [] Out of room [] Palliative care [] [x] Receiving care in room [] Pre-surgical visit [] Trauma [] Long length of stay [] ICU visit [] Other: Relational/Emotional Strength [] Patient feels connected with others/family/visitors/staff [] Distress [] Loneliness/isolation [] Abandonment Spirituality of Patient [] Person of Lacie [] Attends Yazdanism of their Lacie [] Believes in Prayer [] Reads Bible or Hindu materials [] There are Spiritual issues to be addressed Threading Machine Tender Interventions [] Prayer [] Active listening [] Non-anxious presence [] Spiritual/emotional support [] Crisis/trauma care [] Spiritual counseling [] Bereavement support [] Provided bereavement packet [] Provided Bible/devotional materials [] Provided toy/stuffed animal, coloring book to patient or family member [] Provided Communion [] Anointing/[place] [] Salvation [] Completed spiritual assessment [] Other: Impact on Illness or Injury [] Angry [] Fearful [] Anxious [] Often cries [] Exhaustion [] Unable to work [] Unable to attend tenriism [] Unable to walk/stand [] Unable to read [] Unable to drive [] Unable to eat/drink [] Unable to sleep [] Unable to be with family [] Patient intubated [] Other: Summary Time spent with patient
[2025-03-05] MEDS: artificial tears Op Soln 15 mL Btl 1 DROP EYE-BOTH (13:16)
--- NOTE | 2025-03-05 14:33 | P.PN_ITS ---
Subjective 2 Subjective: The patient was seen and evaluated bedside today. He denied nausea or vomiting. He has not passed flatus or had a bowel movement. He does report a decreased appetite. His pain is well-controlled. Vitals/I&O/Wt Last Vital Signs Temp 97.6 F 03/05/25 12:59 Pulse 67 03/05/25 14:14 Resp 18 03/05/25 14:14 BP 145/69 03/05/25 12:59 Pulse Ox 92 03/05/25 14:14 O2 Del Method Room Air 03/05/25 14:14 O2 Flow Rate 2 03/05/25 08:00 FiO2 2 03/05/25 08:21 03/04/25 03/05/25 03/05/25 22:59 06:59 14:59 Intake Total 3238.5 / 4238.5 1066.25 / 1066.25 Output Total 755 / 755 650 / 1405 450 / 450 Balance 2483.5 / 3483.5 -650 / 2833.5 616.25 / 616.25 Weight last 48 hrs Weight 138 lb Weight 138 lb 14.259 oz Weight 145 lb Physical Exam 2 Const: COMMON NORMALS: no acute distress, patient oriented x3 and alert Chest: COMMONS NORMALS: normal inspection of the chest Resp: COMMON NORMALS: normal respiratory effort and No use of accessory muscles GI: COMMON NORMALS: Soft to palpation and non-tender PALPATION: Yes Soft to palpation OTHER: PATSY drain with serosanguineous drainage in the PATSY bulb. Incisions?clean, dry, with Dermabond skin glue over top?intact. No erythema or exudate. No rebound tenderness or rigidity. Abdomen slightly distended. Neuro: COMMON NORMALS: patient oriented x3 SENSORIUM/ORIENTATION: Yes alert Psych: COMMON NORMALS: mental status grossly normal and cooperative Urinary Catheter Management: Horowitz: Cath Placed During This Visit: yes, but has since been removed by the nurse Reason for Continuing Indwelling Catheter: Decision to DC Catheter Urinary Catheter Date of Insertion: 03/04/25 Urinary Catheter Time of Insertion: 17:10 Date Urinary Catheter Removed: 03/05/25 Time Urinary Catheter Discontinued: 13:57 Data 03/05/25 03:24 03/05/25 03:24 Micro: Microbiology 03/04/25 11:45 Blood Culture - Preliminary Blood NEGATIVE TO DATE 03/04/25 11:25 Blood Culture - Preliminary Blood NEGATIVE TO DATE A&P Assessment and plan 1. Appendicitis with peritoneal abscess: -- Possibly developing a postoperative ileus -- Await return of bowel function -- Clear liquid diet as tolerated -- Ambulate 4 times daily -- Continue IV antibiotics for at least 48 hours -Zosyn -- Appreciate medical management by hospitalist -- SCDs and subcu Lovenox -- Incentive spirometry every hour while awake -- Continue drain care and management, empty PATSY drain 4 times daily and strip drain tubing 4 times daily 2. Acute appendicitis: 3. Acute renal failure: 4. Sepsis: 5. Peritonitis (acute) generalized: 6. COPD (chronic obstructive pulmonary disease): 7. Leukocytosis: 8. Diarrhea: 9. Hypertension: 10. BPH (benign prostatic hyperplasia): 11. Smoker: 12. Acute perforated appendicitis: 13. Acute appendicitis with generalized peritonitis and gangrene: PDMP PDMP Reviewed: Not Reviewed Attestations 2 Medical Necessity Statement*: IV antibiotics, IV pain medication, monitoring of vital signs and wound care. Coding Level [facility] Append[facility]is with peritoneal abscess K35.33 Acute appendicitis K35.80 Acute renal failure N17.9 Sepsis A41.9 Peritonitis (acute) generalized K65.0 COPD (chronic obstructive pulmonary disease) J44.9 Leukocytosis D72.829 Diarrhea R19.7 Hypertension I10 BPH (benign prostatic hyperplasia) N40.0 Smoker F17.200 Acute perforated appendicitis K35.32 Acute appendicitis with generalized peritonitis and gangrene K35.209; K35.891
--- NOTE | 2025-03-05 14:49 | P.PN_ITS ---
Subjective 2 Subjective: No acute events overnight. Today morning patient seen with surgical team at bedside, laying comfortably in bed. Patient states he is feeling better. Abdominal pain is better. Documented drain output of 225 cc. Patient complaining of mild bloating. Has not passed gas. States she was hungry in the morning but not currently. Denies any nausea. Has remained afebrile. Vitals/I&O/Wt Last Vital Signs Temp 97.6 F 03/05/25 12:59 Pulse 67 03/05/25 14:14 Resp 16 03/05/25 14:42 BP 145/69 03/05/25 12:59 Pulse Ox 92 03/05/25 14:14 O2 Del Method Room Air 03/05/25 14:14 O2 Flow Rate 2 03/05/25 08:00 FiO2 2 03/05/25 08:21 03/04/25 03/05/25 03/05/25 22:59 06:59 14:59 Intake Total 3238.5 / 4238.5 1066.25 / 1066.25 Output Total 755 / 755 650 / 1405 525 / 525 Balance 2483.5 / 3483.5 -650 / 2833.5 541.25 / 541.25 Weight last 48 hrs Weight 62.596 kg Weight 63 kg Weight 65.771 kg Physical Exam 2 Narrative: General: No acute distress, AO x3 HEENT: PERRLA, pupils bilaterally equal and reactive Chest: Normal vesicular breath sounds, no added sounds, equal good air entry bilaterally CVS: S1-S2 regular, no murmurs, no tachycardia, no gallops, no rubs Abdomen: Soft, tender, guarding present no organomegaly, bowel sounds present but sluggish Neuro: No focal deficits, no facial deformity, AO x3, power 5/5 in all limbs Urinary Catheter Management: Horowitz: Cath Placed During This Visit: yes, but has since been removed by the nurse Reason for Continuing Indwelling Catheter: Decision to DC Catheter Urinary Catheter Date of Insertion: 03/04/25 Urinary Catheter Time of Insertion: 17:10 Date Urinary Catheter Removed: 03/05/25 Time Urinary Catheter Discontinued: 13:57 Data 03/05/25 03:24 03/05/25 03:24 Micro: Microbiology 03/04/25 11:45 Blood Culture - Preliminary Blood NEGATIVE TO DATE 03/04/25 11:25 Blood Culture - Preliminary Blood NEGATIVE TO DATE A&P Assessment and plan 1. Sepsis: SIRS: Tachycardic, Febrile, Leukocytosis Source: Peritonitis/appendicitis End organ damage: Acute kidney injury Lactic acid within normal limits Patient did receive full 30 mL/kg BW. Monitor blood pressures. Keep mean artery pressure 65 mmHg. Follow blood cultures. MRSA swab negative. Appreciate procalcitonin trend. Continue with empiric IV Zosyn. Follow-up OR abscess cultures. Discontinue vancomycin as MRSA swab negative. Continue with D5 NS at 75 cc/h. 2. Acute renal failure: Resolved. Most likely in setting of sepsis leading to ATN. Appreciate urinalysis. Monitor BMP daily. Monitor urine output. DC Horowitz catheterization. 3. Acute appendicitis: With concerns for peritonitis and possible appendiceal perforation. Pain management, diet advancement, management of drain as per surgical team. Out of bed to chair. Start on clear liquid diet. Advance as per surgical team. 4. Peritonitis (acute) generalized: 5. Hypertension: Goal blood pressure less than 140/90 mmHg. Takes lisinopril, hydrochlorothiazide at home. Hold antihypertensive for now. Depending on clinical improvement will plan for further treatment of antihypertensive. Maintain mean artery pressure 65. 6. Smoker: Monitor oxygen levels. Maintain over 90. Pulmicort twice daily, DuoNeb every 6 hours for now. Plan: Restart chronic home medications including Flomax, gabapentin. Full code Clear liquid diet Protonix for PUD prophylaxis SCD for DVT prophylaxis. Lovenox for DVT prophylaxis PDMP PDMP Reviewed: Not Reviewed Attestations 2 Medical Necessity Statement*: Requires further hospitalization for management of sepsis in setting of peritonitis due to appendicitis and possible perforation postoperative care, resolving TRINA Diagnoses Sepsis A41.9 Acute renal failure N17.9 Acute appendicitis K35.80 Peritonitis (acute) generalized K65.0 Hypertension I10 Smoker F17.200
[2025-03-05] MEDS: pantoprazole 40 mg SDV IVP (17:23)
[2025-03-06] VITALS (14 sets, daily range): BP systolic 143–185; BP diastolic 69–90; PULSE 67–82; RESP 16–18; TEMP 36.4–36.9; O2SAT 91–98
[2025-03-06 02:05] LABS: Hematocrit 34.5 % (37-53); Hemoglobin 11.40 g/dL (11.27-16.99); Mean Corpuscular HGB Conc 33.0 g/dL (30-55); Mean Corpuscular Hemoglobin 31.6 pg (27-33); Mean Corpuscular Volume 95.6 fl (82-101); Nucleated Red Blood Cells % 0 %; Platelet Count 207 10^3/cmm (157-399); Red Blood Count 3.61 10^6/uL (3.85-5.65); White Blood Count 7.78 10^3/uL (3.29-11.43)
[2025-03-06 02:34] LABS: Alanine Aminotransferase 7 U/L (0-41); Albumin Level 3.1 g/dL (3.5-5.2); Alkaline Phosphatase 53 U/L (40-130); Anion Gap 15.3 (5-19); Aspartate Amino Transferase 13 U/L (0-40); Blood Urea Nitrogen 10 mg/dL (8-23); Calcium 8.3 mg/dL (8.5-10.5); Carbon Dioxide 23 mmol/L (22-29); Chloride 106 mmol/L (98-107); Creatinine Clr Calc Pharmacy 76.7494; Globulin 2.7 g/dL (1.3-4.6); Glucose 136 mg/dL (65-115); Magnesium 2.5 mg/dL (1.7-2.3); Osmolality Calculated 293 mOsm/kg (285-295); Potassium 3.3 mmol/L (3.5-5.1); Sodium 141 mmol/L (136-145); Total Protein 5.8 g/dL (6.6-8.7)
[2025-03-06] MEDS: piperacillin-tazobactam 3.375 GM in sodium chloride 0.9% (plus) 50 ML IV ×3 (03:19→21:32)
[2025-03-06] MEDS: dextrose 5%-sod chloride 0.9% 1,000 ML 75 ML IV (03:19)
[2025-03-06] MEDS: potassium chloride oral liq 20 mEq/15 mL UDC 40 MEQ PO (10:30)
--- NOTE | 2025-03-06 10:47 | P.PN_ITS ---
Subjective 2 Subjective: No acute events overnight. Patient has remained hemodynamically stable and afebrile. States she was comfortable but feeling at abdominal pain after abdominal exam earlier in the day. Denies any nausea. Has not had a bowel movement or passing flatus. Blood pressure slightly elevated. Vitals/I&O/Wt Last Vital Signs Temp 98.5 F 03/06/25 07:15 Pulse 74 03/06/25 08:34 Resp 18 03/06/25 08:20 BP 164/77 03/06/25 07:15 Pulse Ox 97 03/06/25 08:20 O2 Del Method Room Air 03/06/25 08:20 O2 Flow Rate 2 03/05/25 08:00 FiO2 2 03/05/25 08:21 03/05/25 03/06/25 03/06/25 22:59 06:59 14:59 Intake Total 1170 / 2236.25 50 / 2286.25 530 / 530 Output Total 100 / 625 Balance 1170 / 1711.25 -50 / 1661.25 530 / 530 Weight last 48 hrs Weight 72.756 kg Weight 62.596 kg Weight 63 kg Physical Exam 2 Narrative: General: No acute distress, AO x3 HEENT: PERRLA, pupils bilaterally equal and reactive Chest: Normal vesicular breath sounds, no added sounds, equal good air entry bilaterally CVS: S1-S2 regular, no murmurs, no tachycardia, no gallops, no rubs Abdomen: Soft, tender, guarding present no organomegaly, bowel sounds present but sluggish Neuro: No focal deficits, no facial deformity, AO x3, power 5/5 in all limbs Urinary Catheter Management: Horowitz: Cath Placed During This Visit: yes, but has since been removed by the nurse Reason for Continuing Indwelling Catheter: Decision to DC Catheter Urinary Catheter Date of Insertion: 03/04/25 Urinary Catheter Time of Insertion: 17:10 Date Urinary Catheter Removed: 03/05/25 Time Urinary Catheter Discontinued: 13:57 Data 03/06/25 01:27 03/06/25 01:27 Micro: Microbiology 03/04/25 11:45 Blood Culture - Preliminary Blood NEGATIVE TO DATE 03/04/25 11:25 Blood Culture - Preliminary Blood NEGATIVE TO DATE A&P Assessment and plan 1. Sepsis: SIRS: Tachycardic, Febrile, Leukocytosis Source: Peritonitis/appendicitis End organ damage: Acute kidney injury Lactic acid within normal limits Patient did receive full 30 mL/kg BW. Monitor blood pressures. Keep mean artery pressure 65 mmHg. Follow blood cultures. MRSA swab negative. Appreciate procalcitonin trend. Continue with empiric IV Zosyn. Follow-up OR abscess cultures. Discontinue vancomycin as MRSA swab negative. Continue with D5 NS at 75 cc/h. 2. Acute renal failure: Resolved. Most likely in setting of sepsis leading to ATN. Appreciate urinalysis. Monitor BMP daily. Monitor urine output. DC Horowitz catheterization. 3. Acute appendicitis: With concerns for peritonitis and possible appendiceal perforation. Pain management, diet advancement, management of drain as per surgical team. Out of bed to chair. Start on clear liquid diet. Advance as per surgical team. 4. Peritonitis (acute) generalized: 5. Hypertension: Goal blood pressure less than 140/90 mmHg. Takes lisinopril, hydrochlorothiazide at home. Hold antihypertensive for now. Depending on clinical improvement will plan for further treatment of antihypertensive. Maintain mean artery pressure 65. 6. Smoker: Monitor oxygen levels. Maintain over 90. Pulmicort twice daily, DuoNeb every 6 hours for now. Plan: Restart chronic home medications including Flomax, gabapentin. Full code Clear liquid diet Protonix for PUD prophylaxis SCD for DVT prophylaxis. Lovenox for DVT prophylaxis Plan for the day: Advancement of diet, management of pain as per surgical team. Out of bed to chair. Discussed in detail with the patient regarding need and importance of ambulation and sitting up in chair. Continue with IV Zosyn. Follow-up cultures. Goal blood pressure less than 140/90 mmHg. Restart home dose of lisinopril. Creatinine has been stable. Continue with fluid at 50 cc/h. Can discontinue once oral intake increases. PDMP PDMP Reviewed: Not Reviewed Attestations 2 Medical Necessity Statement*: Requires further hospitalization for postoperative care in a patient admitted with concerns for appendicitis with concerns for possible appendiceal perforation, abscess Diagnoses Sepsis A41.9 Acute renal failure N17.9 Acute appendicitis K35.80 Peritonitis (acute) generalized K65.0 Hypertension I10 Smoker F17.200
--- NOTE | 2025-03-06 10:55 | P.PN_ITS ---
Subjective 2 Subjective: The patient seen and evaluated at bedside this am. He has not passed gas or had a bowel movement. He denied abdominal pain, but did state that he is burping a lot. He has somewhat decreased appettie. Vitals/I&O/Wt Last Vital Signs Temp 98.5 F 03/06/25 07:15 Pulse 74 03/06/25 08:34 Resp 18 03/06/25 08:20 BP 164/77 03/06/25 07:15 Pulse Ox 97 03/06/25 08:20 O2 Del Method Room Air 03/06/25 08:20 O2 Flow Rate 2 03/05/25 08:00 FiO2 2 03/05/25 08:21 03/05/25 03/06/25 03/06/25 22:59 06:59 14:59 Intake Total 1170 / 2236.25 50 / 2286.25 530 / 530 Output Total 100 / 625 Balance 1170 / 1711.25 -50 / 1661.25 530 / 530 Weight last 48 hrs Weight 160 lb 6.4 oz Weight 138 lb Weight 138 lb 14.259 oz Physical Exam 2 Const: COMMON NORMALS: no acute distress, patient oriented x3 and alert Chest: COMMONS NORMALS: normal inspection of the chest Resp: COMMON NORMALS: normal respiratory effort and No use of accessory muscles Neuro: COMMON NORMALS: patient oriented x3 SENSORIUM/ORIENTATION: Yes alert Urinary Catheter Management: Horowitz: Cath Placed During This Visit: yes, but has since been removed by the nurse Reason for Continuing Indwelling Catheter: Decision to DC Catheter Urinary Catheter Date of Insertion: 03/04/25 Urinary Catheter Time of Insertion: 17:10 Date Urinary Catheter Removed: 03/05/25 Time Urinary Catheter Discontinued: 13:57 Data 03/06/25 01:27 03/06/25 01:27 Micro: Microbiology 03/04/25 11:45 Blood Culture - Preliminary Blood NEGATIVE TO DATE 03/04/25 11:25 Blood Culture - Preliminary Blood NEGATIVE TO DATE A&P Assessment and plan 1. Acute appendicitis with generalized peritonitis and gangrene: -- Possibly developing a postoperative ileus -- Awaiting return of bowel function -- Clear liquid diet as tolerated -- Ambulate 4 times daily - needs physical therapy! -- Continue IV antibiotics for now - will need at least 14 days of antibiotics -- Appreciate medical management by hospitalist -- SCDs and subcu Lovenox -- Incentive spirometry every hour while awake -- Continue drain care and management, empty PATSY drain 4 times daily and strip drain tubing 4 times daily -- Patient stated that he has had trouble walking for the last 3 years. He thinks that he may need a cane. This patient may need placement in a detention. 2. Appendicitis with peritoneal abscess: 3. Acute perforated appendicitis: 4. Smoker: 5. BPH (benign prostatic hyperplasia): 6. Hypertension: 7. Diarrhea: 8. Leukocytosis: 9. COPD (chronic obstructive pulmonary disease): 10. Peritonitis (acute) generalized: 11. Sepsis: 12. Acute renal failure: 13. Acute appendicitis: PDMP PDMP Reviewed: Not Reviewed Attestations 2 Medical Necessity Statement*: IV antibiotics, monitoring of vital signs, physical therapy. Coding Level of Care Code Acute Code for [facility] Fwd Diagnoses Acute appendicitis with generalized peritonitis and gangrene K35.209; K35.891 Appendicitis with peritoneal abscess K35.33 Acute perforated appendicitis K35.32 Smoker F17.200 BPH (benign prostatic hyperplasia) N40.0 Hypertension I10 Diarrhea R19.7 Leukocytosis D72.829 COPD (chronic obstructive pulmonary disease) J44.9 Peritonitis (acute) generalized K65.0 Sepsis A41.9 Acute renal failure N17.9 Acute appendicitis K35.80
[2025-03-06] MEDS: pantoprazole 40 mg SDV IVP (17:54)
[2025-03-07] VITALS (13 sets, daily range): BP systolic 137–169; BP diastolic 78–87; PULSE 64–88; RESP 16–18; TEMP 36.4–36.9; O2SAT 90–97
[2025-03-07] MEDS: dextrose 5%-sod chloride 0.9% 1,000 ML 75 ML IV ×2 (01:45→20:04)
[2025-03-07 03:05] LABS: Hematocrit 34.1 % (37-53); Hemoglobin 11.40 g/dL (11.27-16.99); Mean Corpuscular HGB Conc 33.4 g/dL (30-55); Mean Corpuscular Hemoglobin 31.3 pg (27-33); Mean Corpuscular Volume 93.7 fl (82-101); Nucleated Red Blood Cells % 0 %; Platelet Count 218 10^3/cmm (157-399); Red Blood Count 3.64 10^6/uL (3.85-5.65); White Blood Count 9.24 10^3/uL (3.29-11.43)
[2025-03-07 03:33] LABS: Alanine Aminotransferase 9 U/L (0-41); Albumin Level 2.9 g/dL (3.5-5.2); Alkaline Phosphatase 49 U/L (40-130); Anion Gap 13.6 (5-19); Aspartate Amino Transferase 14 U/L (0-40); Blood Urea Nitrogen 8 mg/dL (8-23); Calcium 8.5 mg/dL (8.5-10.5); Carbon Dioxide 24 mmol/L (22-29); Chloride 105 mmol/L (98-107); Creatinine Clr Calc Pharmacy 81.8999; Globulin 2.7 g/dL (1.3-4.6); Glucose 112 mg/dL (65-115); Magnesium 2.0 mg/dL (1.7-2.3); Osmolality Calculated 287 mOsm/kg (285-295); Potassium 3.6 mmol/L (3.5-5.1); Sodium 139 mmol/L (136-145); Total Protein 5.6 g/dL (6.6-8.7)
[2025-03-07] MEDS: piperacillin-tazobactam 3.375 GM in sodium chloride 0.9% (plus) 50 ML IV ×3 (04:14→21:29)
--- NOTE | 2025-03-07 10:01 | PC.CHAP ---
Pastoral Care Encounter/Spiritual Assessment Type of Contact [] Declined geochemistry teacher visit [] Patient/Family/Request visit [] Outpatient visit [] Follow-up visit [] Physician referral [] Code/Alert [x] Routine visit [] Staff referral [] Actively dying [] Patient sleeping [] Family support [] [] Out of room [] Palliative care [] [] Receiving care in room [] Pre-surgical visit [] Trauma [] Long length of stay [] ICU visit [] Other: Relational/Emotional Strength [x] Patient feels connected with others/family/visitors/staff [] Distress [] Loneliness/isolation [] Abandonment Spirituality of Patient [x] Person of Lacie [] Attends Episcopal of their [place] [x] Believes in Prayer [] Reads Bible or Samaritan materials [] There are Spiritual issues to be addressed Clothing Examiner Interventions [x] Prayer [x] Active listening [x] Non-anxious presence [x] Spiritual/emotional support [] Crisis/trauma care [] Spiritual counseling [] Bereavement support [] Provided bereavement packet [] Provided Bible/devotional materials [] Provided toy/stuffed animal, coloring book to patient or family member [] Provided Communion [] Anointing/Cranks [] Salvation [x] Completed spiritual assessment [] Other: Impact on Illness or Injury [] Angry [] Fearful [] Anxious [] Often cries [] Exhaustion [] Unable to work [] Unable to attend advent [] Unable to walk/stand [] Unable to read [] Unable to drive [] Unable to eat/drink [] Unable to sleep [] Unable to be with family [] Patient intubated [] Other: Summary Time spent with patient 5 min
--- NOTE | 2025-03-07 10:08 | PC.SOCIAL ---
IMM Update pg 2 of IMM Updated and reviewed w/ patient. Copy provided and copy dated, initialed and placed in chart.
[2025-03-07 10:14] LABS: Procalcitonin 0.78 ng/mL (0-0.5)
--- NOTE | 2025-03-07 10:41 | P.PN_ITS ---
Subjective 2 Subjective: The patient was seen and evaluated at bedside this morning. He had some nausea this morning, this has resolved. He denied vomiting. He has been passing flatus, bot no bowel movement. Patient is now walking with a walker. PATSY drain remains serous. He remains afebrile and hemodynamically normal. WBC remains normal. Urine output was 1,200 cc. Vitals/I&O/Wt Last Vital Signs Temp 98.4 F 03/07/25 07:50 Pulse 74 03/07/25 07:50 Resp 16 03/07/25 07:50 BP 137/79 03/07/25 07:50 Pulse Ox 95 03/07/25 07:50 O2 Del Method Room Air 03/07/25 07:50 O2 Flow Rate 2 03/05/25 08:00 FiO2 2 03/05/25 08:21 03/06/25 03/07/25 03/07/25 22:59 06:59 14:59 Intake Total 1050 / 1940 530 / 2470 250 / 250 Output Total 595 / 795 1460 / 2255 Balance 455 / 1145 -930 / 215 250 / 250 Weight last 48 hrs Weight 160 lb 4 oz Weight 160 lb 6.4 oz Physical Exam 2 Const: COMMON NORMALS: no acute distress, patient oriented x3 and alert Resp: COMMON NORMALS: normal respiratory effort and No use of accessory muscles GI: COMMON NORMALS: Soft to palpation and non-tender PALPATION: Yes Soft to palpation OTHER: Abdomen somewhat distended, but not firm or taut. No rebound tenderness and no rigidity. PATSY drain output remains serous. Neuro: COMMON NORMALS: patient oriented x3 SENSORIUM/ORIENTATION: Yes alert Psych: COMMON NORMALS: mental status grossly normal and normal affect Urinary Catheter Management: Horowitz: Cath Placed During This Visit: yes, but has since been removed by the nurse Reason for Continuing Indwelling Catheter: Decision to DC Catheter Urinary Catheter Date of Insertion: 03/04/25 Urinary Catheter Time of Insertion: 17:10 Date Urinary Catheter Removed: 03/05/25 Time Urinary Catheter Discontinued: 13:57 Data 03/07/25 02:38 03/07/25 02:38 Micro: Microbiology 03/04/25 17:39 Gram Stain - Final Peritoneal Cavity Anaerobic Culture - Preliminary Abscess Culture - Preliminary Gram Negative Rods A&P Assessment and plan 1. Acute appendicitis with generalized peritonitis and gangrene: -- Ileus - improved -- Passing flatus, but no bowel movement, awaiting complete return of bowel function -- Rectal suppository now -- Full liquid diet -- Ambulate 4 times daily - needs physical therapy! -- Await final fluid cultures and sensitivities - preliminary is gram negative rods, no anerobes result yet: For now: Last dose Zosyn at noon, Augmentin BID start this evening - if ileus persists I would switch back to IV Zosyn -- Appreciate medical management by hospitalist -- Saline lock IV -- SCDs and subcu Lovenox -- Incentive spirometry every hour while awake -- Continue drain care and management, empty PATSY drain 4 times daily and strip drain tubing 4 times daily -- Patient stated that he has had trouble walking for the last 3 years. He thinks that he may need a cane. This patient may need placement in a half-way. Consult case management. 2. Appendicitis with peritoneal abscess: 3. Acute perforated appendicitis: 4. Smoker: 5. BPH (benign prostatic hyperplasia): 6. Hypertension: 7. Diarrhea: 8. Leukocytosis: 9. COPD (chronic obstructive pulmonary disease): 10. Peritonitis (acute) generalized: 11. Sepsis: 12. Acute renal failure: 13. Acute appendicitis: PDMP PDMP Reviewed: Not Reviewed Attestations 2 Medical Necessity Statement*: Monitor vital signs, PT, await return of bowel function, diet advancement. Coding Level of Care Code Acute Code for [facility] Fwd Diagnoses Acute appendicitis with generalized peritonitis and gangrene K35.209; K35.891 Appendicitis with peritoneal abscess K35.33 Acute perforated appendicitis K35.32 Smoker F17.200 BPH (benign prostatic hyperplasia) N40.0 Hypertension I10 Diarrhea R19.7 Leukocytosis D72.829 COPD (chronic obstructive pulmonary disease) J44.9 Peritonitis (acute) generalized K65.0 Sepsis A41.9 Acute renal failure N17.9 Acute appendicitis K35.80
--- NOTE | 2025-03-07 13:06 | P.PN_ITS ---
Vitals/I&O/Wt Last Vital Signs Temp 97.6 F 03/07/25 11:08 Pulse 75 03/07/25 11:08 Resp 18 03/07/25 11:08 BP 152/81 03/07/25 11:08 Pulse Ox 93 03/07/25 11:08 O2 Del Method Room Air 03/07/25 11:08 O2 Flow Rate 2 03/05/25 08:00 FiO2 2 03/05/25 08:21 03/06/25 03/07/25 03/07/25 22:59 06:59 14:59 Intake Total 1050 / 1940 530 / 2470 250 / 250 Output Total 595 / 795 1460 / 2255 Balance 455 / 1145 -930 / 215 250 / 250 Weight last 48 hrs Weight 72.688 kg Weight 72.756 kg Physical Exam 2 Narrative: General: No acute distress, AO x3 HEENT: PERRLA, pupils bilaterally equal and reactive Chest: Normal vesicular breath sounds, no added sounds, equal good air entry bilaterally CVS: S1-S2 regular, no murmurs, no tachycardia, no gallops, no rubs Abdomen: Soft, tender, guarding present no organomegaly, bowel sounds present but sluggish, patient passing gas Neuro: No focal deficits, no facial deformity, AO x3, Urinary Catheter Management: Horowitz: Cath Placed During This Visit: yes, but has since been removed by the nurse Reason for Continuing Indwelling Catheter: Decision to DC Catheter Urinary Catheter Date of Insertion: 03/04/25 Urinary Catheter Time of Insertion: 17:10 Date Urinary Catheter Removed: 03/05/25 Time Urinary Catheter Discontinued: 13:57 Data 03/07/25 02:38 03/07/25 02:38 Micro: Microbiology 03/04/25 17:39 Gram Stain - Final Peritoneal Cavity Anaerobic Culture - Preliminary Abscess Culture - Preliminary Escherichia coli Proteus mirabilis A&P Assessment and plan 1. Sepsis: SIRS: Tachycardic, Febrile, Leukocytosis Source: Peritonitis/appendicitis End organ damage: Acute kidney injury Lactic acid within normal limits Patient did receive full 30 mL/kg BW. Monitor blood pressures. Keep mean artery pressure 65 mmHg. Follow blood cultures. MRSA swab negative. Appreciate procalcitonin trend. Continue with empiric IV Zosyn. Follow-up OR abscess cultures. Discontinue vancomycin as MRSA swab negative. Continue with D5 NS at 75 cc/h. 2. Acute renal failure: Resolved. Most likely in setting of sepsis leading to ATN. Appreciate urinalysis. Monitor BMP daily. Monitor urine output. DC Horowitz catheterization. 3. Acute appendicitis: With concerns for peritonitis and possible appendiceal perforation. Pain management, diet advancement, management of drain as per surgical team. Out of bed to chair. Start on clear liquid diet. Advance as per surgical team. 4. Peritonitis (acute) generalized: 5. Hypertension: Goal blood pressure less than 140/90 mmHg. Takes lisinopril, hydrochlorothiazide at home. Hold antihypertensive for now. Depending on clinical improvement will plan for further treatment of antihypertensive. Maintain mean artery pressure 65. 6. Smoker: Monitor oxygen levels. Maintain over 90. Pulmicort twice daily, DuoNeb every 6 hours for now. Plan: Restart chronic home medications including Flomax, gabapentin. Full code Clear liquid diet Protonix for PUD prophylaxis SCD for DVT prophylaxis. Lovenox for DVT prophylaxis Plan for the day: Advancement of diet, management of pain as per surgical team. Out of bed to chair. Discussed in detail with the patient regarding need and importance of ambulation and sitting up in chair. Continue with IV Zosyn. Follow-up cultures. Goal blood pressure less than 140/90 mmHg. Restart home dose of lisinopril. Creatinine has been stable. Continue with fluid at 50 cc/h. Can discontinue once oral intake increases. 03/07/2025 seen today awaiting return of bowel function procal 0.78 phos 1.4 today continue phospha neutro 250 bid x 4 days placed on augmentin per gen surgery continue PT will need SNF at discharge suppository given today diet advancement per surgery PDMP PDMP Reviewed: Not Reviewed Attestations 2 Medical Necessity Statement*: Monitor vital signs, PT, await return of bowel function, diet advancement. Diagnoses Sepsis A41.9 Acute renal failure N17.9 Acute appendicitis K35.80 Peritonitis (acute) generalized K65.0 Hypertension I10 Smoker F17.200
[2025-03-07] MEDS: ondansetron 2 mg/ML SDV 2 mL 4 MG IVP (17:42)
[2025-03-07] MEDS: pantoprazole 40 mg SDV IVP (17:42)
[2025-03-08] VITALS (11 sets, daily range): BP systolic 146–175; BP diastolic 70–81; PULSE 63–86; RESP 14–18; TEMP 36.5–37.4; O2SAT 90–94
[2025-03-08] MEDS: piperacillin-tazobactam 3.375 GM in sodium chloride 0.9% (plus) 50 ML IV ×3 (05:10→22:00)
[2025-03-08 05:37] LABS: Hematocrit 33.9 % (37-53); Hemoglobin 11.50 g/dL (11.27-16.99); Mean Corpuscular HGB Conc 33.9 g/dL (30-55); Mean Corpuscular Hemoglobin 31.9 pg (27-33); Mean Corpuscular Volume 94.2 fl (82-101); Nucleated Red Blood Cells % 0 %; Platelet Count 238 10^3/cmm (157-399); Red Blood Count 3.60 10^6/uL (3.85-5.65); White Blood Count 11.09 10^3/uL (3.29-11.43)
[2025-03-08 05:58] LABS: Anion Gap 13.8 (5-19); Blood Urea Nitrogen 9 mg/dL (8-23); Calcium 8.6 mg/dL (8.5-10.5); Carbon Dioxide 23 mmol/L (22-29); Chloride 104 mmol/L (98-107); Creatinine Clr Calc Pharmacy 80.7877; Glucose 102 mg/dL (65-115); Magnesium 1.8 mg/dL (1.7-2.3); Osmolality Calculated 283 mOsm/kg (285-295); Potassium 3.8 mmol/L (3.5-5.1); Sodium 137 mmol/L (136-145)
--- NOTE | 2025-03-08 12:44 | P.PN_ITS ---
Subjective 2 Subjective: Seen this morning. Patient's PATSY drain was removed advertently yesterday by nursing staff. Afebrile overnight Mainly serous drainage present when seen yesterday. This morning feels well however states his abdomen feels tight to him. Vitals/I&O/Wt Last Vital Signs Temp 98.9 F 03/08/25 11:16 Pulse 66 03/08/25 11:16 Resp 15 03/08/25 11:16 BP 146/77 03/08/25 11:16 Pulse Ox 93 03/08/25 11:16 O2 Del Method Room Air 03/08/25 11:16 O2 Flow Rate 2 03/05/25 08:00 FiO2 2 03/05/25 08:21 03/07/25 03/08/25 03/08/25 22:59 06:59 14:59 Intake Total 1055 / 1665 50 / 1715 410 / 410 Output Total 200 / 200 200 / 400 475 / 475 Balance 855 / 1465 -150 / 1315 -65 / -65 Weight last 48 hrs Weight 70.562 kg Weight 72.688 kg Physical Exam 2 Narrative: General: No acute distress, AO x3 Chest: Normal vesicular breath sounds, equal good air entry bilaterally, clear to auscultation bilaterally CVS: S1-S2 regular, no murmurs, no tachycardia, no gallops, no rubs Abdomen: Soft, tender, guarding present , bowel sounds present ,patient passing gas, tympanic to percussion Neuro: No focal deficits, no facial deformity, AO x3, Urinary Catheter Management: Horowitz: Cath Placed During This Visit: yes, but has since been removed by the nurse Reason for Continuing Indwelling Catheter: Decision to DC Catheter Urinary Catheter Date of Insertion: 03/04/25 Urinary Catheter Time of Insertion: 17:10 Date Urinary Catheter Removed: 03/05/25 Time Urinary Catheter Discontinued: 13:57 Data 03/08/25 05:15 03/08/25 05:15 Micro: Microbiology 03/04/25 17:39 Gram Stain - Final Peritoneal Cavity Anaerobic Culture - Preliminary Abscess Culture - Final Escherichia coli Proteus mirabilis Enterococcus avium A&P Assessment and plan 1. Sepsis: SIRS: Tachycardic, Febrile, Leukocytosis Source: Peritonitis/appendicitis End organ damage: Acute kidney injury Lactic acid within normal limits Patient did receive full 30 mL/kg BW. Monitor blood pressures. Keep mean artery pressure 65 mmHg. Follow blood cultures. MRSA swab negative. Appreciate procalcitonin trend. Continue with empiric IV Zosyn. Follow-up OR abscess cultures. Discontinue vancomycin as MRSA swab negative. Continue with D5 NS at 75 cc/h. 2. Acute renal failure: Resolved. Most likely in setting of sepsis leading to ATN. Appreciate urinalysis. Monitor BMP daily. Monitor urine output. DC Horowitz catheterization. 3. Acute appendicitis: With concerns for peritonitis and possible appendiceal perforation. Pain management, diet advancement, management of drain as per surgical team. Out of bed to chair. Start on clear liquid diet. Advance as per surgical team. 4. Peritonitis (acute) generalized: 5. Hypertension: Goal blood pressure less than 140/90 mmHg. Takes lisinopril, hydrochlorothiazide at home. Hold antihypertensive for now. Depending on clinical improvement will plan for further treatment of antihypertensive. Maintain mean artery pressure 65. 6. Smoker: Monitor oxygen levels. Maintain over 90. Pulmicort twice daily, DuoNeb every 6 hours for now. Plan: Restart chronic home medications including Flomax, gabapentin. Full code Clear liquid diet Protonix for PUD prophylaxis SCD for DVT prophylaxis. Lovenox for DVT prophylaxis 03/06/2025 Advancement of diet, management of pain as per surgical team. Out of bed to chair. Discussed in detail with the patient regarding need and importance of ambulation and sitting up in chair. Continue with IV Zosyn. Follow-up cultures. Goal blood pressure less than 140/90 mmHg. Restart home dose of lisinopril. Creatinine has been stable. Continue with fluid at 50 cc/h. Can discontinue once oral intake increases. 03/07/2025 seen today awaiting return of bowel function procal 0.78 phos 1.4 today continue phospha neutro 250 bid x 4 doses placed on augmentin per gen surgery continue PT will need SNF at discharge suppository given today diet advancement per surgery 03/08/2025 Seen this morning. Says his abdomen feels slightly tight. Stop IV fluids Continue DVT prophylaxis with Lovenox 40 daily Continue lisinopril 20 daily, Toprol tartrate 50 twice daily Complete dosing of oral phosphorus Continue Zosyn Add linezolid based on intra-abdominal cultures Complete 7 days of oral linezolid. Continue IV Zosyn at this time. Will switch to ciprofloxacin and Flagyl at time of discharge Patient's PATSY drain was removed inadvertently yesterday by nursing staff. I will continue to monitor for fever leukocytosis and will consider repeating CT abdomen in next 48 hours. If patient remains stable in next 48 hours we will plan for discharge home with oral antibiotics. I have added discussion with patient to come back to the hospital if he has worsening abdominal pain or any other symptoms to which she is agreeable. Appreciate neurosurgery recommendations. Continue full liquid diet per general surgery. That is management per surgery. PDMP PDMP Reviewed: Not Reviewed Attestations 2 Medical Necessity Statement*: Monitor vital signs, PT, await return of bowel function, diet advancement. Diagnoses Sepsis A41.9 Acute renal failure N17.9 Acute appendicitis K35.80 Peritonitis (acute) generalized K65.0 Hypertension I10 Smoker F17.200
--- NOTE | 2025-03-08 13:21 | P.PN_ITS ---
Subjective 2 Subjective: Tolerating clears Passing gas Abdomen benign No fevers No leukocytosis Vitals/I&O/Wt Last Vital Signs Temp 98.9 F 03/08/25 11:16 Pulse 66 03/08/25 11:16 Resp 15 03/08/25 11:16 BP 146/77 03/08/25 11:16 Pulse Ox 93 03/08/25 11:16 O2 Del Method Room Air 03/08/25 11:16 O2 Flow Rate 2 03/05/25 08:00 FiO2 2 03/05/25 08:21 03/07/25 03/08/25 03/08/25 22:59 06:59 14:59 Intake Total 1055 / 1665 50 / 1715 410 / 410 Output Total 200 / 200 200 / 400 475 / 475 Balance 855 / 1465 -150 / 1315 -65 / -65 Weight last 48 hrs Weight 155 lb 9 oz Weight 160 lb 4 oz Physical Exam 2 Narrative: Chest: Unlabored breathing room air. No lymphadenopathy. Heart: Regular rate and rhythm. Abdomen: Soft, nontender, mildly distended. Urinary Catheter Management: Horowitz: Cath Placed During This Visit: yes, but has since been removed by the nurse Reason for Continuing Indwelling Catheter: Decision to DC Catheter Urinary Catheter Date of Insertion: 03/04/25 Urinary Catheter Time of Insertion: 17:10 Date Urinary Catheter Removed: 03/05/25 Time Urinary Catheter Discontinued: 13:57 Data 03/08/25 05:15 03/08/25 05:15 Micro: Microbiology 03/04/25 17:39 Gram Stain - Final Peritoneal Cavity Anaerobic Culture - Preliminary Abscess Culture - Final Escherichia coli Proteus mirabilis Enterococcus avium A&P Assessment and plan 1. Appendicitis with peritoneal abscess: Plan: 69-year-old male status post appendectomy. Perforated appendicitis. Drain removed prematurely. Doing well advance diet as tolerated. Rest of care per hospitalist. PDMP PDMP Reviewed: Not Reviewed Attestations 2 Medical Necessity Statement*: N/A Coding Level of Care Code 17735 Diagnoses Appendicitis with peritoneal abscess K35.33
[2025-03-08] MEDS: pantoprazole 40 mg SDV IVP (18:25)
[2025-03-09] VITALS (11 sets, daily range): BP systolic 132–164; BP diastolic 62–87; PULSE 58–88; RESP 16–19; TEMP 36.4–37.6; O2SAT 90–94
[2025-03-09] MEDS: piperacillin-tazobactam 3.375 GM in sodium chloride 0.9% (plus) 50 ML IV ×2 (05:58→14:55)
[2025-03-09 06:03] LABS: Hematocrit 35.2 % (37-53); Hemoglobin 11.80 g/dL (11.27-16.99); Mean Corpuscular HGB Conc 33.5 g/dL (30-55); Mean Corpuscular Hemoglobin 32.6 pg (27-33); Mean Corpuscular Volume 97.2 fl (82-101); Nucleated Red Blood Cells % 0 %; Platelet Count 283 10^3/cmm (157-399); Red Blood Count 3.62 10^6/uL (3.85-5.65); White Blood Count 11.27 10^3/uL (3.29-11.43)
[2025-03-09 06:24] LABS: Alanine Aminotransferase 13 U/L (0-41); Albumin Level 2.8 g/dL (3.5-5.2); Alkaline Phosphatase 53 U/L (40-130); Anion Gap 15.9 (5-19); Aspartate Amino Transferase 15 U/L (0-40); Blood Urea Nitrogen 11 mg/dL (8-23); Calcium 8.6 mg/dL (8.5-10.5); Carbon Dioxide 25 mmol/L (22-29); Chloride 103 mmol/L (98-107); Creatinine Clr Calc Pharmacy 80.0374; Globulin 2.6 g/dL (1.3-4.6); Glucose 89 mg/dL (65-115); Magnesium 2.0 mg/dL (1.7-2.3); Osmolality Calculated 289 mOsm/kg (285-295); Potassium 3.9 mmol/L (3.5-5.1); Sodium 140 mmol/L (136-145); Total Protein 5.4 g/dL (6.6-8.7)
--- NOTE | 2025-03-09 09:02 | P.PN_ITS ---
Subjective 2 Subjective: tolerating fulls no pain no fevers having bowel function Vitals/I&O/Wt Last Vital Signs Temp 97.6 F 03/09/25 07:15 Pulse 71 03/09/25 08:53 Resp 16 03/09/25 08:45 BP 155/78 03/09/25 07:15 Pulse Ox 94 03/09/25 08:45 O2 Del Method Room Air 03/09/25 08:45 O2 Flow Rate 2 03/05/25 08:00 FiO2 2 03/05/25 08:21 03/08/25 03/09/25 03/09/25 22:59 06:59 14:59 Intake Total 168 / 1506 50 / 1556 240 / 240 Balance 168 / 1031 50 / 1081 240 / 240 Weight last 48 hrs Weight 152 lb 4.8 oz Weight 155 lb 9 oz Physical Exam 2 Narrative: rrr unlabored breathing ra abdomen soft, nt, nd. Incisions c/d/i Urinary Catheter Management: Horowitz: Cath Placed During This Visit: yes, but has since been removed by the nurse Reason for Continuing Indwelling Catheter: Decision to DC Catheter Urinary Catheter Date of Insertion: 03/04/25 Urinary Catheter Time of Insertion: 17:10 Date Urinary Catheter Removed: 03/05/25 Time Urinary Catheter Discontinued: 13:57 Data 03/09/25 05:31 03/09/25 05:31 Micro: Microbiology 03/04/25 17:39 Gram Stain - Final Peritoneal Cavity Anaerobic Culture - Preliminary Prevotella oralis Abscess Culture - Final Escherichia coli Proteus mirabilis Enterococcus avium A&P Assessment and plan 1. Appendicitis with peritoneal abscess: Plan: 69 yo male s/p lap appy for perforated appendicitis. Doing well. Transition to PO antibiotics. Liberalize diet. Can follow up in 2 weeks in clinic. Discussed with hospitalist. PDMP PDMP Reviewed: Not Reviewed Attestations 2 Medical Necessity Statement*: NA Coding Level of Care Code 71175 Diagnoses Appendicitis with peritoneal abscess K35.33
--- NOTE | 2025-03-09 09:26 | PC.SOCIAL ---
IMM Update pg 2 of IMM Updated and reviewed w/ patient. Copy provided. Copy dated, initialed and placed in chart.
--- NOTE | 2025-03-09 14:20 | P.PN_ITS ---
Subjective 2 Subjective: Seen this morning. Afebrile overnight Abdomen soft. Has had several bowel movements overnight. Vitals/I&O/Wt Last Vital Signs Temp 98 F 03/09/25 11:22 Pulse 66 03/09/25 11:22 Resp 17 03/09/25 11:22 BP 153/82 03/09/25 11:22 Pulse Ox 92 03/09/25 11:22 O2 Del Method Room Air 03/09/25 08:45 O2 Flow Rate 2 03/05/25 08:00 FiO2 2 03/05/25 08:21 03/08/25 03/09/25 03/09/25 22:59 06:59 14:59 Intake Total 168 / 1506 50 / 1556 530 / 530 Balance 168 / 1031 50 / 1081 530 / 530 Weight last 48 hrs Weight 69.082 kg Weight 70.562 kg Physical Exam 2 Narrative: General: No acute distress, AO x3 Chest: Normal vesicular breath sounds, equal good air entry bilaterally, clear to auscultation bilaterally CVS: S1-S2 regular, no murmurs, no tachycardia, no gallops, no rubs Abdomen: Soft, nontender, no guarding present. Bowel sounds present. Neuro: No focal deficits, no facial deformity, AO x3, Urinary Catheter Management: Horowitz: Cath Placed During This Visit: yes, but has since been removed by the nurse Reason for Continuing Indwelling Catheter: Decision to DC Catheter Urinary Catheter Date of Insertion: 03/04/25 Urinary Catheter Time of Insertion: 17:10 Date Urinary Catheter Removed: 03/05/25 Time Urinary Catheter Discontinued: 13:57 Data 03/09/25 05:31 03/09/25 05:31 Micro: Microbiology 03/04/25 11:45 Blood Culture - Final Blood NO GROWTH AFTER 5 DAYS 03/04/25 11:25 Blood Culture - Final Blood NO GROWTH AFTER 5 DAYS 03/04/25 17:39 Gram Stain - Final Peritoneal Cavity Anaerobic Culture - Preliminary Prevotella oralis Abscess Culture - Final Escherichia coli Proteus mirabilis Enterococcus avium A&P Assessment and plan 1. Sepsis: SIRS: Tachycardic, Febrile, Leukocytosis Source: Peritonitis/appendicitis End organ damage: Acute kidney injury Lactic acid within normal limits Patient did receive full 30 mL/kg BW. Monitor blood pressures. Keep mean artery pressure 65 mmHg. Follow blood cultures. MRSA swab negative. Appreciate procalcitonin trend. Continue with empiric IV Zosyn. Follow-up OR abscess cultures. Discontinue vancomycin as MRSA swab negative. Continue with D5 NS at 75 cc/h. 2. Acute renal failure: Resolved. Most likely in setting of sepsis leading to ATN. Appreciate urinalysis. Monitor BMP daily. Monitor urine output. DC Horowitz catheterization. 3. Acute appendicitis: With concerns for peritonitis and possible appendiceal perforation. Pain management, diet advancement, management of drain as per surgical team. Out of bed to chair. Start on clear liquid diet. Advance as per surgical team. 4. Peritonitis (acute) generalized: 5. Hypertension: Goal blood pressure less than 140/90 mmHg. Takes lisinopril, hydrochlorothiazide at home. Hold antihypertensive for now. Depending on clinical improvement will plan for further treatment of antihypertensive. Maintain mean artery pressure 65. 6. Smoker: Monitor oxygen levels. Maintain over 90. Pulmicort twice daily, DuoNeb every 6 hours for now. Plan: Restart chronic home medications including Flomax, gabapentin. Full code Clear liquid diet Protonix for PUD prophylaxis SCD for DVT prophylaxis. Lovenox for DVT prophylaxis 03/06/2025 Advancement of diet, management of pain as per surgical team. Out of bed to chair. Discussed in detail with the patient regarding need and importance of ambulation and sitting up in chair. Continue with IV Zosyn. Follow-up cultures. Goal blood pressure less than 140/90 mmHg. Restart home dose of lisinopril. Creatinine has been stable. Continue with fluid at 50 cc/h. Can discontinue once oral intake increases. 03/07/2025 seen today awaiting return of bowel function procal 0.78 phos 1.4 today continue phospha neutro 250 bid x 4 doses placed on augmentin per gen surgery continue PT will need SNF at discharge suppository given today diet advancement per surgery 03/08/2025 Seen this morning. Says his abdomen feels slightly tight. Stop IV fluids Continue DVT prophylaxis with Lovenox 40 daily Continue lisinopril 20 daily, Toprol tartrate 50 twice daily Complete dosing of oral phosphorus Continue Zosyn Add linezolid based on intra-abdominal cultures Complete 7 days of oral linezolid. Continue IV Zosyn at this time. Will switch to ciprofloxacin and Flagyl at time of discharge Patient's PATSY drain was removed inadvertently yesterday by nursing staff. I will continue to monitor for fever leukocytosis and will consider repeating CT abdomen in next 48 hours. If patient remains stable in next 48 hours we will plan for discharge home with oral antibiotics. I have added discussion with patient to come back to the hospital if he has worsening abdominal pain or any other symptoms to which she is agreeable. Appreciate neurosurgery recommendations. Continue full liquid diet per general surgery. That is management per surgery. 03/09/2025 Diet advance per surgery Hold docusate as 100 twice daily. Patient starting to have diarrhea. Discussed with ID physician over the phone regarding patient's intra-abdominal abscess cultures. We will send patient home on Augmentin for an additional 7 days. If patient remains afebrile overnight we will plan for discharge in a.m. Repeat CT abdomen pelvis recommended in 10 days outpatient. If has leukocytosis or fever overnight we will repeat imaging study in AM. Clinically he is doing quite well. Family present at bedside updated. Patient's family was asking about a kidney stone with the patient had. I told them that patient may follow-up with urology as an outpatient to have that addressed. However after looking up patient's CT abdomen pelvis from this hospitalization the kidney stone and not being identified. I will order renal ultrasound for patient as an outpatient and have him follow-up with his primary care doctor for further workup. He is not complaining of any flank pain at this time. Creatinine is normal, WBC count normal. PDMP PDMP Reviewed: Not Reviewed Attestations 2 Medical Necessity Statement*: Plan for discharge in a.m. Diagnoses Sepsis A41.9 Acute renal failure N17.9 Acute appendicitis K35.80 Peritonitis (acute) generalized K65.0 Hypertension I10 Smoker F17.200
[2025-03-09] MEDS: hyDRALAzine 20 mg/mL INJ 1 mL 10 MG IVP (16:30)
[2025-03-09] MEDS: pantoprazole 40 mg SDV IVP (18:38)
[2025-03-10] VITALS (7 sets, daily range): BP systolic 146–173; BP diastolic 70–83; PULSE 56–80; RESP 17; TEMP 36.5–37.1; O2SAT 93–95
[2025-03-10] MEDS: piperacillin-tazobactam 3.375 GM in sodium chloride 0.9% (plus) 50 ML IV ×2 (00:51→07:47)
[2025-03-10 05:05] LABS: Hematocrit 33.1 % (37-53); Hemoglobin 10.80 g/dL (11.27-16.99); Mean Corpuscular HGB Conc 32.6 g/dL (30-55); Mean Corpuscular Hemoglobin 31.4 pg (27-33); Mean Corpuscular Volume 96.2 fl (82-101); Nucleated Red Blood Cells % 0 %; Platelet Count 292 10^3/cmm (157-399); Red Blood Count 3.44 10^6/uL (3.85-5.65); White Blood Count 11.19 10^3/uL (3.29-11.43)
[2025-03-10 05:27] LABS: Anion Gap 13.9 (5-19); Blood Urea Nitrogen 11 mg/dL (8-23); Calcium 8.4 mg/dL (8.5-10.5); Carbon Dioxide 23 mmol/L (22-29); Chloride 105 mmol/L (98-107); Creatinine Clr Calc Pharmacy 80.0374; Glucose 95 mg/dL (65-115); Magnesium 1.9 mg/dL (1.7-2.3); Osmolality Calculated 285 mOsm/kg (285-295); Potassium 3.9 mmol/L (3.5-5.1); Sodium 138 mmol/L (136-145)
--- NOTE | 2025-03-10 08:23 | CT_ITS ---
WS: [id number] CT ABDOMEN PELVIS TECHNIQUE: Contrast-enhanced CT of the abdomen and pelvis with coronal and sagittal reformatted images. CLINICAL INFORMATION: low grade fever, post - op COMPARISON: None. DLP: 443.[address] scans at [facility] use at least one of these dose optimization techniques: automated exposure control; mA and/or kV adjustment per patient size (includes targeted exams where dose is matched to clinical indication); or iterative reconstruction. FINDINGS: Recent postoperative changes of appendectomy. Surgical clips in RIGHT lower quadrant. Significant improvement with resolution of the previously described mesenteric inflammation and induration. Tiny trace of low-attenuation fluid along the peritoneal reflection in the central mesentery measuring 1.6 cm. No drainable abscess or drainable fluid collection. Persistent small bowel ileus. Air-fluid level in the stomach. Fluid distention of the proximal duodenum. Sigmoid diverticulosis. No evidence of acute diverticulitis. Air and fluid within the transverse colon and LEFT descending colon. Reactive enhancement involving small bowel loops in the RIGHT lower quadrant. Tiny bilateral pleural effusions with bibasilar atelectasis. No hydronephrosis in either kidney. Urine distended bladder. Enlarged prostate. Dense vascular calcification. RIGHT bladder diverticulum. No other significant changes compared to previous. CT/CT abdomen pelvis w con* [id number] IMPRESSION: 1. Tiny bilateral pleural effusions with bibasilar atelectasis. 2. Recent postoperative changes of appendectomy with resolution of the previou sly described mesenteric induration and inflammation. 3. Tiny trace of wispy fluid along the peritoneal reflection central mesentery measuring 1.6 cm. No evidence of drainable abscess or fluid collection. 4. Persistent small bowel ileus. 5. No other significant changes.
[2025-03-10] MEDS: iohexol 350 mg/mL 500 mL Btl (per mL) IV (09:07)
--- NOTE | 2025-03-10 10:03 | PM.DCS ---
Discharge Providers Date of Admission: 03/04/25 17:58 Date of Discharge: March 10, 2025 Attending Provider at Admission: Lila Hunter MD Attending Provider at Discharge: Fatoumata Mehta MD Diagnoses at Discharge Discharge Diagnosis 1. Sepsis: 2. Acute renal failure: 3. Acute appendicitis: 4. Peritonitis (acute) generalized: 5. Hypertension: 6. Smoker: Reason for Visit Reason for Visit: appendicitis Brief History: Miguel Maguire is a 69 year old male with past medical history of hypertension, BPH presented to the ER today because of abdominal distention, abdominal pain more so in the right lower quadrant worsening over last 4 days along with episode of vomiting 4 days ago. Patient has been having bowel movements which are at his baseline with last bowel movement today morning. Has been eating and drinking less with decreased urination over the last 2 days. In the ER at first he was found to be hypotensive with blood pressure in 90s systolics and he received 2 L IV fluid bolus after which it improved to 126 systolics on examination. He was found to have leukocytosis, acute kidney injury with hyponatremia, CT abdomen pelvis concerning for possible severe appendicitis. Medicine team is consulted for further management and admission. Patient is being taken to the OR for further management. Hospital Course Hospital Course Patient presented to the hospital with nausea vomiting right lower quadrant pain. He was diagnosed with acute appendicitis with perforation. Underwent surgery. He had laparoscopic appendectomy. PATSY drain was placed. Also had generalized peritonitis and gangrene with peritoneal abscess that was washed out and peritoneal fluid sent for Gram stain aerobic anaerobic cultures and sensitivities. Appendix sent for histopathology. Patient did quite well postop however secondary to PATSY drainage he was monitored in the hospital and kept on IV antibiotics due to perforated appendix and intra-abdominal abscess. Initial plan was to send patient home with PATSY drain however it was accidentally removed by nursing staff. Thereafter he was monitored in the hospital for 72 hours for fever and abdominal imaging was repeated. Patient was able to tolerate diet and did well and therefore discharged home with oral antibiotics to follow-up with general surgery as an outpatient. General surgery followed patient. Physical Exam Narrative: General: No acute distress, AO x3 Chest: Normal vesicular breath sounds, equal good air entry bilaterally, clear to auscultation bilaterally CVS: S1-S2 regular, no murmurs, no tachycardia, no gallops, no rubs Abdomen: Soft, nontender, no guarding present. Bowel sounds present. Neuro: No focal deficits, no facial deformity, AO x3, Urinary Catheter Management: Horowitz: Cath Placed During This Visit: yes, but has since been removed by the nurse Reason for Continuing Indwelling Catheter: Decision to DC Catheter Urinary Catheter Date of Insertion: 03/04/25 Urinary Catheter Time of Insertion: 17:10 Date Urinary Catheter Removed: 03/05/25 Time Urinary Catheter Discontinued: 13:57 Discharge Data Studies Completed and Pending Completed Studies During Hospitalization Category Date Time Status CT abdomen pelvis w con* [id number] Stat Cat Scan 03/04/25 12:[address] abdomen pelvis w con* [id number] Stat Cat Scan 03/10/25 08:23 Completed Pending at discharge Category Date Time Status Abscess Culture and Gram Stain Routine Lab 03/04/25 17:39 Results Anaerobic Culture Routine Lab 03/04/25 17:39 Results Pathology: Surgical [PTH] Routine Pth 03/04/25 18:58 Received Radiology Impressions Abdomen/Pelvis CT 03/10/25 08:23 IMPRESSION: 1. Tiny bilateral pleural effusions with bibasilar atelectasis. 2. Recent postoperative changes of appendectomy with resolution of the previously described mesenteric induration and inflammation. 3. Tiny trace of wispy fluid along the peritoneal reflection central mesentery measuring 1.6 cm. No evidence of drainable abscess or fluid collection. 4. Persistent small bowel ileus. 5. No other significant changes. Laboratory Results WBC 11.19 10^3/uL (3.29-11.43) 03/10/25 04:50 RBC 3.44 10^6/uL (3.85-5.65) L 03/10/25 04:50 Hgb 10.80 g/dL (11.27-16.99) L 03/10/25 04:50 Hct 33.1 % (37-53) L 03/10/25 04:50 MCV 96.2 fl (82-101) 03/10/25 04:50 MCH 31.4 pg (27-33) 03/10/25 04:50 MCHC 32.6 g/dL (30-55) 03/10/25 04:50 RDW 13.2 % (12.1-15.1) 03/10/25 04:50 Plt Count 292 10^3/cmm (157-399) 03/10/25 04:50 MPV 9.0 fL (7.4-10.4) 03/10/25 04:50 Neut % (Auto) 62.7 % 03/10/25 04:50 Lymph % (Auto) 18.7 % 03/10/25 04:50 [place] % (Auto) 11.0 % 03/10/25 04:50 Eos % (Auto) 5.2 % 03/10/25 04:50 Baso % (Auto) 0.6 % 03/10/25 04:50 Neut # (Auto) 7.02 10^3/uL (1.8-7.7) 03/10/25 04:50 Lymph # (Auto) 2.1 10^3/uL (0.8-4.8) 03/10/25 04:50 [place] # (Auto) 1.2 10^3/uL (0.2-0.9) H 03/10/25 04:50 Eos # (Auto) 0.6 10^3/uL (0.0-0.8) 03/10/25 04:50 Baso # (Auto) 0.1 10^3/uL (0.0-0.1) 03/10/25 04:50 Nucleated RBC % (auto) 0 % 03/10/25 04:50 Nucleated RBCs # 0.0 /100WBC 03/10/25 04:50 Sodium 138 mmol/L (136-145) 03/10/25 04:50 Potassium 3.9 mmol/L (3.5-5.1) 03/10/25 04:50 Chloride 105 mmol/L (98-107) 03/10/25 04:50 Carbon Dioxide 23 mmol/L (22-29) 03/10/25 04:50 Anion Gap 13.9 (5-19) 03/10/25 04:50 BUN 11 mg/dL (8-23) 03/10/25 04:50 Creatinine 0.7 mg/dL (0.7-1.2) 03/10/25 04:50 GFR Calculation 112.5 mL/min (90-130) 03/10/25 04:50 Glucose 95 mg/dL (65-115) 03/10/25 04:50 Estimat Average Glucose 114 03/04/25 11:25 Hemoglobin A1c 5.6 % (4.0-6.0) 03/04/25 11:25 Calculated Osmolality 285 mOsm/kg (285-295) 03/10/25 04:50 Lactic Acid 1.8 mmol/L (0.5-2.2) 03/04/25 11:25 Calcium 8.4 mg/dL (8.5-10.5) L 03/10/25 04:50 Phosphorus 4.0 mg/dL (2.5-4.5) 03/08/25 05:15 Magnesium 1.9 mg/dL (1.7-2.3) 03/10/25 04:50 Iron 15 ug/dL (59-158) L 03/04/25 11:25 TIBC 302 mcg/dl 03/04/25 11:25 % Saturation 4.9 % (20-50) L 03/04/25 11: Unsat Iron Binding 287 ug/dL (112-347) 03/04/25 11:25 Total Bilirubin 0.4 mg/dL (0.15-1.2) 03/09/25 05:31 AST 15 U/L (0-40) 03/09/25 05:31 ALT 13 U/L (0-41) 03/09/25 05:31 Alkaline Phosphatase 53 U/L (40-130) 03/09/25 05:31 C-Reactive Protein 430.2 mg/L (0.0-4.9) H 03/04/25 11:25 Total Protein 5.4 g/dL (6.6-8.7) L 03/09/25 05:31 Albumin 2.8 g/dL (3.5-5.2) L 03/09/25 05:31 Globulin 2.6 g/dL (1.3-4.6) 03/09/25 05:31 Triglycerides 104 mg/dL (0-150) 03/05/25 03:24 Cholesterol 116 mg/dL (0-200) 03/05/25 03:24 LDL Cholesterol, Calc 73 mg/dL (50-129) 03/05/25 03:24 HDL Cholesterol 22 mg/dL (60-100) L 03/05/25 03:24 LDL/HDL Ratio 3.32 RATIO (0.00-3.22) H 03/05/25 03:24 Cholesterol/HDL Ratio 5.27 mg/dL (1.0-5.00) H 03/05/25 03:24 Lipase 8 U/L (13-60) L 03/04/25 11:25 Vitamin B12 450 pg/mL (232-1245) 03/04/25 11:25 Folate 12.7 ng/mL (4.5-32.2) 03/05/25 03:24 Procalcitonin 0.78 ng/mL (0-0.5) H 03/07/25 02:38 TSH 2.11 uIU/mL (0.27-4.20) 03/04/25 11:25 Urine Color Dark yellow (Yellow) A 03/04/25 11:20 Urine Appearance Cloudy (CLEAR) A 03/04/25 11:20 Urine pH 5.5 (5-7) 03/04/25 11:20 Ur Specific [place] 1.025 (1.005-1.030) 03/04/25 11:20 Urine Protein 1+ (Negative) A 03/04/25 11:20 Urine Glucose (UA) Negative (Normal) 03/04/25 11:20 Urine Ketones 1+ (Negative) H 03/04/25 11:20 Urine Blood Negative (Negative) 03/04/25 11:20 Urine Nitrate Negative (Negative) 03/04/25 11:20 Urine Bilirubin 1+ (Negative) H 03/04/25 11:20 Urine Urobilinogen 1.0 mg/dL (Negative) 03/04/25 11:20 Ur Leukocyte Esterase Negative (Negative) 03/04/25 11:20 Urine RBC 3-5 /hpf (0-2) 03/04/25 11:20 Urine WBC 0-5 /hpf (0-5) 03/04/25 11:20 Ur Squamous Epith Cells 11-20 /hpf (0-5) H 03/04/25 11:20 Amorphous Sediment Not Reportable 03/04/25 11:20 Urine Bacteria None seen /hpf (NONE) 03/04/25 11:20 Hyaline Casts 64.96 /lpf 03/04/25 11:20 Fine Granular Casts 0-4 /lpf H 03/04/25 11:20 Nasal MRSA (PCR) Not detected (Negative) 03/04/25 21:00 Vitals Last Vital Signs Temp 97.7 F 03/10/25 07:45 Pulse 57 L 03/10/25 08:51 Resp 17 03/10/25 08:51 BP 173/83 03/10/25 07:45 Pulse Ox 95 03/10/25 08:51 O2 Del Method Room Air 03/10/25 08:51 O2 Flow Rate 2 03/05/25 08:00 FiO2 2 03/05/25 08:21 Discharge Plan Discharge Patient Disposition: Home Condition: Stable Prescriptions: New metoprolol tartrate 50 mg Tablet 50 mg PO BID@0900,2100 Qty: 60 0RF Continued zinc acetate 50 mg (zinc) Capsule 50 mg PO DAILY lisinopril 20 mg Tablet 10 mg PO DAILY famotidine 20 mg Tablet 20 mg PO BID methocarbamol 750 mg Tablet 750 mg PO TID PRN (Reason: Pain) tamsulosin 0.4 mg Capsule 0.4 mg PO QPM gabapentin 300 mg Capsule 300 mg PO TID folic acid 1 mg Tablet 1 mg PO DAILY hydrochlorothiazide 25 mg Tablet 12.5 mg PO DAILY fluticasone propion-salmeterol [Wixela Inhub] 100-50 mcg/dose Blister With Device 1 inh INHALATION Q12H albuterol sulfate [Ventolin HFA] 90 mcg/actuation Hfa Aerosol Inhaler 2 inh INHALATION BID PRN (Reason: Shortness Of Breath Or Wheezing) cholecalciferol (vitamin D3) [Vitamin D3] 25 mcg (1,000 unit) Capsule 25 mcg PO DAILY Discontinued naproxen 375 mg Tablet 375 mg PO BID PRN (Reason: Pain) metoprolol tartrate 100 mg Tablet 100 mg PO BID Discharge Order = DC NOW: Discharge Order (Routine); Ordered 03/10/25 Ordered By: Fatoumata Mehta Other Ambulatory Orders: Basic Metabolic Panel (Routine) Timeframe: 1 Week Facility: [facility] - Location: Lab - Main Lab Ordered By: Fatoumata Mehta Complete Blood Count w/Auto (Routine) Timeframe: 1 Week Location: Determined by Patient Ordered By: Fatoumata Mehta Referrals: Maicol Jaffe MD [Physician, General Surgery] - 03/28/25 8:35 am Referral Note: Pietro Fletcher DO [Emergency Department, Emergency Medicine] - 1-3 days Referral Note: We have notified your physician's clinic of the need for a follow-up appointment to be scheduled. If you have not heard from them within the next 2 business days, please call them directly. Discharge Diet: GI Soft Discharge Activity: Increase activity as tolerated Patient Instructions: Metoprolol (By mouth), Amoxicillin/Clavulanate Potassium (By mouth) (Augmentin, Augmentin..., Acute Wound Care (DC), Laparoscopic Appendectomy (DC), Opioid Safety, Post Anesthesia Care, Patient Portal & Gagan Instructions Discharge Attestations Time Spent in Discharge Care*: less than 30 min Quality Metrics Clinical Quality Measures [ No reported AMI, CVA or VTE this stay] Coding Level of Care Code 22633 Diagnoses Sepsis A41.9 Acute renal failure N17.9 Acute appendicitis K35.80 Peritonitis (acute) generalized K65.0 Hypertension I10 Smoker F17.200
--- NOTE | 2025-03-10 11:06 | P.PN_ITS ---
Subjective 2 Subjective: Afebrile Abdomen benign Tolerating diet Vitals/I&O/Wt Last Vital Signs Temp 97.7 F 03/10/25 07:45 Pulse 57 L 03/10/25 08:51 Resp 17 03/10/25 08:51 BP 173/83 03/10/25 07:45 Pulse Ox 95 03/10/25 08:51 O2 Del Method Room Air 03/10/25 08:51 O2 Flow Rate 2 03/05/25 08:00 FiO2 2 03/05/25 08:21 03/09/25 03/10/25 03/10/25 22:59 06:59 14:59 Intake Total 410 / 940 50 / 990 240 / 240 Output Total 400 / 400 Balance 50 / 590 240 / 240 Weight last 48 hrs Weight 152 lb 4 oz Weight 152 lb 4.8 oz Physical Exam 2 Narrative: Chest: Unlabored breathing room air. No lymphadenopathy. Heart: Regular rate and rhythm. Abdomen: Soft, nontender, nondistended. No masses or lymphadenopathy. Urinary Catheter Management: Horowitz: Cath Placed During This Visit: yes, but has since been removed by the nurse Reason for Continuing Indwelling Catheter: Decision to DC Catheter Urinary Catheter Date of Insertion: 03/04/25 Urinary Catheter Time of Insertion: 17:10 Date Urinary Catheter Removed: 03/05/25 Time Urinary Catheter Discontinued: 13:57 Data 03/10/25 04:50 03/10/25 04:50 Micro: Microbiology 03/04/25 11:45 Blood Culture - Final Blood NO GROWTH AFTER 5 DAYS 03/04/25 11:25 Blood Culture - Final Blood NO GROWTH AFTER 5 DAYS 03/04/25 17:39 Gram Stain - Final Peritoneal Cavity Anaerobic Culture - Preliminary Prevotella oralis Abscess Culture - Final Escherichia coli Proteus mirabilis Enterococcus avium A&P Assessment and plan 1. Appendicitis with peritoneal abscess: Plan: 69-year-old male status post lap appendectomy. Cleared for discharge. PDMP PDMP Reviewed: Not Reviewed Attestations 2 Medical Necessity Statement*: N/A Coding Level of Care Code Acute Code for [facility] Diagnoses Appendicitis with peritoneal abscess K35.33
== END 2025-03-10 12:15 | disposition home or self-care (01) | DRG 853 ==
LOC: ER 15:40 → OR 16:13 → ICU 17:59 → MEDSURG 22:38
PROVIDERS: Student in an Organized Health Care Education/Training Program; Admitting Provider Surgery; Emergency Provider Emergency Medicine; Visit Provider Internal Medicine
PROC: 0DTJ4ZZ Resection of Appendix, Percutaneous Endoscopic Approach (ICD-10-PCS; CPT 44970; principal; 2025-03-04 17:00)
PROC: 0DTJ0ZZ Resection of Appendix, Open Approach (ICD-10-PCS; CPT 49320; 2025-03-04 17:00)
DX: A41.9 Sepsis, unspecified organism (principal); K35.33 Acute appendicitis with perforation, localized peritonitis, and gangrene, with abscess; N17.0 Acute kidney failure with tubular necrosis; E87.1 Hypo-osmolality and hyponatremia; E87.20 Acidosis, unspecified; R65.20 Severe sepsis without septic shock; I10 Essential (primary) hypertension; F17.200 Nicotine dependence, unspecified, uncomplicated; N40.0 Benign prostatic hyperplasia without lower urinary tract symptoms; E86.0 Dehydration; R19.7 Diarrhea, unspecified; Z98.1 Arthrodesis status; J44.9 Chronic obstructive pulmonary disease, unspecified
CPT/HCPCS: 36415; 51702; 74177; 80048; 80053; 80061; 81001; 82607; 82746; 83036; 83540; 83550; 83605; 83690; 83735; 84100; 84145; 84443; 85025; 86140; 87040; 87070; 87075; 87077; 87186; 87205; 88304; 94640; 94664; 96365; 96372; 96375; 96376; 97116; 97161; 99285; 99291; A4216; J0330; J0360; J1100; J1171; J1650; J2020; J2185; J2270; J2405; J2470; J2543; J2704; J3010; J3372; J3373; J3490; J7030; J7042; J7626; J9999; P9045

== ENCOUNTER → 2025-03-28 08:22 | Outpatient (BNVA) | payer OTHER, SELFPAY | PROVIDERS: Visit Provider Student in an Organized Health Care Education/Training Program | DX: Z98.890 Other specified postprocedural states (principal); Z90.49 Acquired absence of other specified parts of digestive tract | CPT/HCPCS: 99024 ==